=== PATIENT | female | born 1950 | race Caucasian/White ===

== ENCOUNTER → 2016-10-15 | Outpatient (CLI) | payer OTHER ==
--- NOTE | 2016-10-16 08:15 | PULMONARY FUNCTION TEST ---
Spirometry is normal. Repeat study done following bronchodilators showed no significant change in function. Flow volume loops were normal.
== END | disposition home or self-care (01) ==
LOC: C.RC 14:06
PROVIDERS: ATTEND Family Medicine
DX: R06.09 Other forms of dyspnea (principal); I10 Essential (primary) hypertension; Z68.23 Body mass index [BMI] 23.0-23.9, adult; R32 Unspecified urinary incontinence

== ENCOUNTER → 2016-10-19 | Outpatient (CLI) | payer OTHER | END | disposition home or self-care (01) | LOC: C.LABSPEC 17:03 | PROVIDERS: ATTEND Nurse Practitioner Adult Health | DX: R32 Unspecified urinary incontinence (principal) ==

== ENCOUNTER → 2016-12-21 | Outpatient (CLI) | payer OTHER | LOC: C.LABSPEC 17:44 | PROVIDERS: ATTEND Nurse Practitioner Adult Health | DX: R32 Unspecified urinary incontinence (principal) ==

== ENCOUNTER → 2017-07-27 | Outpatient (CLI) | payer OTHER ==
--- NOTE | 2017-07-27 15:20 | MAMMOGRAPHY REPORT ---
BILATERAL DIGITAL SCREENING MAMMOGRAM TOMOSYNTHESIS WITH CAD: 07/27/2017 CLINICAL HISTORY: Routine screening. Patient has no complaints. TECHNIQUE: Breast tomosynthesis in addition to standard 2D mammography was performed. Current study was also evaluated with a Computer Aided Detection (CAD) system. COMPARISON: Comparison is made to exams dated: 08/05/2016 mammogram, 07/20/2016 mammogram, 07/01/2015 mammogram, 07/18/2014 ultrasound, 07/18/2014 mammogram, and 06/27/2013 mammogram - [facility]. BREAST COMPOSITION: There are scattered areas of fibroglandular density in both breasts. FINDINGS: There is a stable ribbon-shaped biopsy marker clip in the upper outer anterior left breast, and a few benign calcifications bilaterally. No suspicious mass, architectural distortion or cluste r of suspicious microcalcifications is seen. IMPRESSION: ACR BI-RADS CATEGORY 1: NEGATIVE There is no mammographic evidence of malignancy. A 1 year screening mammogram is recommended. The pa tient will receive written notification of the results. Approximately 10% of breast cancers are not detected with mammography. A negative mammographic report should not delay biopsy if a clinically suggestive mass is present. Jacqueline Almanza M.D. ay/:07/27/2017 13:44:03 Manager Industrial: Modesta Navas, [facility] letter sent: Normal 1/2 BI-RADS Code: ACR BI-RADS Category 1: Negative
== END | disposition home or self-care (01) ==
LOC: C.MAMM 13:19
PROVIDERS: ATTEND Family Medicine
DX: Z12.31 Encounter for screening mammogram for malignant neoplasm of breast (principal)

== ENCOUNTER → 2018-02-01 | Outpatient (CLI) | payer OTHER | END | disposition home or self-care (01) | LOC: C.MAMM 15:27 | PROVIDERS: ATTEND Family Medicine | DX: M85.89 Other specified disorders of bone density and structure, multiple sites (principal) ==

== ENCOUNTER 2021-01-25 19:22 | Inpatient (IN) ==
--- NOTE | 2021-01-25 19:41 | Emergency Department Note ---
History of Present Illness General Chief complaint: Fall Stated complaint: FALL Time Seen by Provider: 01/25/21 19:28 Source: patient and friends Limitations: intoxication History of Present Illness Provider complaint: Fall Onset (ago): day(s) Location: head Maximum Pain Intensity: 0 Associated symptoms: + syncope (Unsure); no chest pain, no fever/chills, no headaches, no nausea/vomiting and no shortness of breath This is a 70-year-old female brought in by her friend for evaluation after a fall 2 days ago. The patient states that she drank too much alcohol at the time and she fell onto her hardwood floor. She is not exactly sure how she fell and does not really remember the incident to well. There was blood on the floor according to her friend and she had a laceration to the back of her head. She does state that her tetanus is up-to-date. She complains of bruising all over her body but has no specific foci of pain. She denies headache, neck pain, chest pain, shortness of breath, abdominal pain, back pain or hip pain. She states she drank a bit of alcohol today as well. She is not on any blood thinners. She denies any recent illness or fever or cough. Her friend states that the patient has not really eaten or drank anything today. History is limited due to what appears to be alcohol intoxication. Home Medications Medication Instructions Recorded Confirmed Type alendronate 35 mg PO WK 01/25/21 01/25/21 History cholecalciferol (vitamin D3) 2,000 unit PO DAILY 01/25/21 01/25/21 History [Vitamin D3] docusate sodium 100 mg PO DAILY 01/25/21 01/25/21 History folic acid 400 mcg PO DAILY 01/25/21 01/25/21 History hydrochlorothiazide 25 mg PO QAM 01/25/21 01/25/21 History lamotrigine 200 mg PO BID 01/25/21 01/25/21 History lorazepam 1 mg PO HS PRN 01/25/21 01/25/21 History propranolol 40 mg PO BID 01/25/21 01/25/21 History risperidone [Risperdal] 0.5 mg PO HS 01/25/21 01/25/21 History vortioxetine [Trintellix] 20 mg PO DAILY 01/25/21 01/25/21 History zolpidem [Ambien] 5 mg PO 4XWK PRN 01/25/21 01/25/21 History Allergies Allergy/AdvReac Type Severity Reaction Status Date / Time No Known Allergies Allergy Unverified 01/25/21 20:24 Past Med/Surg History Medical History (Updated 01/25/21 @ 21:51 by Ferdinand Woods MD) Hypertension Social History Smoking Status: Never smoker Feels Safe at Home: Yes Review of Systems See HPI for pertinent positives & negatives. and A total of 10 systems reviewed and were otherwise negative Physical Exam Vital Signs Vital Signs - 24 hr 01/25/21 18:29 01/25/21 19:23 01/25/21 20:09 Temperature 36.4 C L Temperature Source Temporal Artery Scan Pulse Rate 112 H 115 H 111 H Pulse Rate from SpO2 Sensor 111 H Pulse Rhythm Regular Respiratory Rate 19 18 18 Blood Pressure 144/108 H 162/91 H Blood Pressure Mean 120 114 Blood Pressure Position Lying Pulse Oximetry 94 94 99 Oxygen Delivery Method Room Air Room Air Sepsis Recent Fever Within 48 Hours No Sepsis New/Unexplained Change in Mental Status No Sepsis Action Taken by Nursing No Action Required Constitutional: Vital signs reviewed. Eyes: Pupils are equal round reactive to light. Conjunctiva are noninjected. ENT: Pharynx is clear without erythema or exudate. Mucous membranes are moist. Neck supple without meningeal signs. No periorbital ecchymosis or agosto sign. Respiratory: Clear to auscultation bilaterally. Breath sounds are equal bilaterally. Cardiovascular: Tachycardic. Regular rhythm. GI: Soft, nondistended and nontender. Bowel sounds are present. Musculoskeletal: Multiple bruises of varying stages throughout the body including the left upper extremity, right upper extremity, left hip, left breast and lower extremities. No hip tenderness with full range of motion of both joints. There is some mild tenderness to the left lateral shoulder without obvious deformity. Distal pulses in all extremities. No rib tenderness. No midline tenderness to thoracic or lumbar spine. Integumentary: No cyanosis. or jaundice. 3 cm scabbed over laceration to the left occiput. No bleeding. No signs of infection. Neurological: The patient is awake and alert. Appears intoxicated. Moves all extremities. No pronator drift. Cranial nerves are grossly intact without facial droop. Patient is not cooperative with exam. Psychiatric: Unable to assess. Course Administered Medications Sodium Chloride (Nss) 500 mls @ 125 mls/hr IV .Q4H NANCY Stop: 02/24/21 19:44 Last Admin: 01/25/21 19:58 Dose: 125 mls/hr Documented by: [id number] Discontinued Medications Ioversol (Optiray 350 500ml) 113 ml IV ONCE ONE Stop: 01/25/21 20:52 Last Admin: 01/25/21 20:52 Dose: 113 ml Documented by: [id number] Medical Decision Making Differential Diagnosis Alcohol intoxication, intracranial hemorrhage, concussion, syncope, anemia, metabolic derangement, electrolyte abnormality Medical Records Attestation: I reviewed the patient's medical records. I did perform a limited focused review of portions of the patient's old chart on the electronic medical record. The patient has had no recent pertinent visits to this hospital. Home Medications Current Medication List: was personally reviewed by me Laboratory Data Attestation: I reviewed the patient's lab results. Result diagrams: 01/25/21 19:54 01/25/21 19:54 Lab Results 01/25/21 01/25/21 01/25/21 Range/Units 19:54 19:54 19:54 WBC 3.89 L (4.8-10.8) K/uL RBC 3.44 L (4.2-5.4) M/uL Hgb 11.7 L (12.0-16.0) g/dL Hct 34.2 L (37-47) % MCV 99.4 (80-100) fL MCH 34.0 (25-34) pg MCHC 34.2 (32-36) g/dL RDW Std Deviation 46.3 (36.4-46.3) fL RDW Coeff of Rosaura 12.7 (11.5-14.5) % Plt Count 147 (130-400) K/uL MPV 9.3 (7.4-10.4) fL Immature Gran % (Auto) 0.3 % Neut % (Auto) 62.1 % Lymph % (Auto) 25.7 % Merrick % (Auto) 11.1 % Eos % (Auto) 0.3 % Baso % (Auto) 0.5 % Neut # (Auto) 2.42 (1.4-6.5) K/uL Lymph # (Auto) 1.00 L (1.2-3.4) K/uL Merrick # (Auto) 0.43 (0.11-0.59) K/uL Eos # (Auto) 0.01 (0-0.5) K/uL Baso # (Auto) 0.02 (0-0.2) K/uL Immature Gran # (Auto) 0.01 (0.00-0.02) K/uL Pappenheimer Bodies Occasional Sodium 132 L (136-145) mmol/L Potassium 3.3 L (3.5-5.1) mmol/L Chloride 92 L (98-107) mmol/L Carbon Dioxide 26 (21-32) mmol/L Anion Gap 14.0 H (3-11) BUN 9 (7-18) mg/dl Creatinine 0.76 (0.6-1.2) mg/dl Est Cr Clr Drug Dosing Not Reportable Est GFR ( Amer) 92.8 Est GFR (Non-Af Amer) 80.0 BUN/Creatinine Ratio 11.9 (10-20) Glucose 83 (70-99) mg/dl Calcium 8.8 (8.5-10.1) mg/dl Magnesium 2.3 (1.8-2.4) mg/dl Total Bilirubin 1.2 H (0.2-1) mg/dl AST 232 H (15-37) U/L ALT 113 H (12-78) U/L Alkaline Phosphatase 93 (45-117) U/L Troponin I 0.084 H* (0-0.045) ng/ml Total Protein 7.6 (6.4-8.2) gm/dl Albumin 4.0 (3.4-5.0) gm/dl Globulin 3.6 (2.5-4.0) gm/dl Albumin/Globulin Ratio 1.1 (0.9-2) Ethyl Alcohol mg/dL 382.3 H (0-3) mg/dl COVID-19 Eval Order 01/25/21 Range/Units 21:07 WBC (4.8-10.8) K/uL RBC (4.2-5.4) M/uL Hgb (12.0-16.0) g/dL Hct (37-47) % MCV (80-100) fL MCH (25-34) pg MCHC (32-36) g/dL RDW Std Deviation (36.4-46.3) fL RDW Coeff of Rosaura (11.5-14.5) % Plt Count (130-400) K/uL MPV (7.4-10.4) fL Immature Gran % (Auto) % Neut % (Auto) % Lymph % (Auto) % Merrick % (Auto) % Eos % (Auto) % Baso % (Auto) % Neut # (Auto) (1.4-6.5) K/uL Lymph # (Auto) (1.2-3.4) K/uL Merrick # (Auto) (0.11-0.59) K/uL Eos # (Auto) (0-0.5) K/uL Baso # (Auto) (0-0.2) K/uL Immature Gran # (Auto) (0.00-0.02) K/uL Pappenheimer Bodies Sodium (136-145) mmol/L Potassium (3.5-5.1) mmol/L Chloride (98-107) mmol/L Carbon Dioxide (21-32) mmol/L Anion Gap (3-11) BUN (7-18) mg/dl Creatinine (0.6-1.2) mg/dl Est Cr Clr Drug Dosing Est GFR ( Amer) Est GFR (Non-Af Amer) BUN/Creatinine Ratio (10-20) Glucose (70-99) mg/dl Calcium (8.5-10.1) mg/dl Magnesium (1.8-2.4) mg/dl Total Bilirubin (0.2-1) mg/dl AST (15-37) U/L ALT (12-78) U/L Alkaline Phosphatase (45-117) U/L Troponin I (0-0.045) ng/ml Total Protein (6.4-8.2) gm/dl Albumin (3.4-5.0) gm/dl Globulin (2.5-4.0) gm/dl Albumin/Globulin Ratio (0.9-2) Ethyl Alcohol mg/dL (0-3) mg/dl COVID-19 Eval Order CovFluRsv at [facility] Imaging Data Attestation: I personally reviewed and interpreted this imaging study as follows: Radiologist's Impression: Chest X-Ray 01/25/21 19:35 XR chest 1V portable HISTORY: 70 years-old Female fall acute chest trauma status post fall COMPARISON: None TECHNIQUE: Semierect AP view the chest FINDINGS: Cardiac mediastinal and hilar silhouettes are within normal limits. No pneumothorax, pleural effusion, airspace consolidation or overt pulmonary edema. Bones of the chest appear grossly intact. IMPRESSION: No acute process. ACT 112: Negative or not required by law. The above report was generated using voice recognition software. It may contain grammatical, syntax or spelling errors. Electronically signed by: Ciaran Gomez M.D. 01/25/2021 7:58 PM Shoulder X-Ray 01/25/21 19:35 XR shoulder LT min 2V routine HISTORY: 70 years-old Female fall eval for injury acute left shoulder pain status post fall COMPARISON: Chest radiograph of same day TECHNIQUE: The left shoulder FINDINGS: Mild glenohumeral and AC joint osteoarthritis. No acute fracture, dislocation or opaque foreign body. IMPRESSION: No acute fracture. ACT 112: Negative or not required by law. The above report was generated using voice recognition software. It may contain grammatical, syntax or spelling errors. Electronically signed by: Ciaran Gomez M.D. 01/25/2021 7:55 PM Hip/Pelvis X-Ray 01/25/21 19:41 XR hip LT 2V w pelvis HISTORY: 70 years-old Female fall eval for injury acute pelvic and left hip rodolfo n status post fall COMPARISON: None TECHNIQUE: AP view of the pelvis with 2 views of the left hip FINDINGS: Mild osteophyte is of the hips. No acute fracture, dislocation or avascular necrosis. Soft tissue swelling lateral to left hip. IMPRESSION: 1. No acute fracture. 2. Soft tissue swelling lateral to the left hip. ACT 112: Negative or not required by law. The above report was generated using voice recognition software. It may contain grammatical, syntax or spelling errors. Electronically signed by: Ciaran Gomez M.D. 01/25/2021 7:56 PM Preliminary Findings Only See Final Report For Complete Findings CTA CHEST: No traumatic injury within the chest. Lungs are clear. No pleural effusion or pneumothorax. Unremarkable appearance of the heart and great vessels. Marked hepatic steatosis. Radiologist: Bari Cannon MD Study ready at 21:00 and initial results transmitted at 21:12 Preliminary Findings Only See Final Report For Complete Findings CT C SPINE: No evidence of fracture or malalignment. Radiologist: Bari Cannon MD Study ready at 20:56 and initial results transmitted at 21:07 Preliminary Findings Only See Final Report For Complete Findings CT HEAD: No ICH, mass effect or edema. No skull fracture. Radiologist: Bari Cannon MD Study ready at 20:56 and initial results transmitted at 21:04 ECG Data Attestation: I personally reviewed and interpreted this ECG as follows: Indication: + tachycardia Rate (beats per minute): 104 Rhythm: + sinus tachycardia ECG [place]: + Normal ECG ST segments: + Nonspecific ST abnormalities ECG Findings: no PVCs Head Trauma GCS Score: 15 MDM Narrative I did evaluate the patient as noted above. The patient is presenting with injuries after fall 2 days ago. She does have bruising throughout her body of varying stages. She appears intoxicated today. IV access was established. I did place an order for continuous cardiac monitoring. The monitor showed sinus tachycardia at a rate of 110 bpm. I did order and personally review the patient's 12-lead EKG as described above. She has nonspecific ST-T wave changes.She denies any complaints of chest pain or shortness of breath. I did order and personally reviewed the images of the patient's chest, left shoulder, left hip and pelvis x-rays as described above. There is no acute process within the chest. There is no evidence of fracture or dislocation in the shoulder, hip or pelvis. I did order a urine analysis. I did order and review the patient's blood work as noted in the electronic medical record. Electrolytes demonstrate hypokalemia and hyponatremia with hypokalemia and a chloride of 92. AST and ALT are elevated at 232 and 113 respectively. Troponin is elevated at 0.084. Serum alcohol is 382. I did order a CT of the head and cervical spine and CT angiogram of the chest. I did review the images myself as well as the radiology report as described above. There is no evidence of acute finding on CT angiogram of the chest or CT of the head spine. I did discuss the test results with the patient and her friend. She will be hospitalized for further care and evaluation her repeat of cardiac biomarkers. The case was discussed with the disability case manager and the hospitalist was informed. Covid screening was obtained. Impression & Plan Syncope, Elevated troponin, Alcohol intoxication, Acute head injury, Laceration of scalp, Contusion of multiple sites, Acute hyponatremia, Acute hypokalemia Discharge Plan Visit Data Chief Complaint: Fall Stated Complaint: FALL ED Provider: Ferdinand Woods Discharge Problem: Syncope, Elevated troponin, Alcohol intoxication, Acute head injury, Laceration of scalp, Contusion of multiple sites, Acute hyponatremia, Acute hypokalemia Patient Disposition: Being Evaluated by Hospitalist Forms Stand Alone Forms: My [facility] Prescriptions Prescriptions: No Action lamotrigine 200 mg tablet 200 mg PO BID RF: 0 folic acid 400 mcg Tablet 400 mcg PO DAILY RF: 0 alendronate 35 mg tablet 35 mg PO WK RF: 0 propranolol 40 mg tablet 40 mg PO BID RF: 0 docusate sodium 100 mg Capsule 100 mg PO DAILY RF: 0 hydrochlorothiazide 25 mg tablet 25 mg PO QAM RF: 0 zolpidem [Ambien] 5 mg Tablet 5 mg PO 4XWK PRN (Reason: Sleep) RF: 0 lorazepam 1 mg tablet 1 mg PO HS PRN (Reason: Sleep) RF: 0 risperidone [Risperdal] 0.5 mg Tablet 0.5 mg PO HS RF: 0 cholecalciferol (vitamin D3) [Vitamin D3] 50 mcg (2,000 unit) Tablet 2,000 unit PO DAILY RF: 0 Trintellix 20 mg tablet 20 mg PO DAILY RF: 0 Referrals Referrals: Annmarie Greene DO [Primary Care Provider] - Discharge Problem: Syncope Qualifiers: Syncope type: unspecified Qualified Code(s): R55 - Syncope and collapse Alcohol intoxication Qualifiers: Complication of substance-induced condition: with unspecified complication Qualified Code(s): F10.929 - Alcohol use, unspecified with intoxication, unspecified Acute head injury Qualifiers: Encounter type: initial encounter Qualified Code(s): S09.90XA - Unspecified injury of head, initial encounter Laceration of scalp Qualifiers: Encounter type: initial encounter Qualified Code(s): S01.01XA - Laceration without foreign body of scalp, initial encounter
--- NOTE | 2021-01-25 19:57 | XRay Report ---
XR shoulder LT min 2V routine HISTORY: 70 years-old Female fall eval for injury acute left shoulder pain status post fall COMPARISON: Chest radiograph of same day TECHNIQUE: The left shoulder FINDINGS: Mild glenohumeral and AC joint osteoarthritis. No acute fracture, dislocation or opaque foreign body. IMPRESSION: No acute fracture. ACT 112: Negative or not required by law. The above report was generated using voice recognition software. It may contain grammatical, syntax o r spelling errors. Electronically signed by: Ciaran Gomez M.D. 01/25/2021 7:55 PM
[2021-01-25] MEDS: SODIUM CHLORIDE 0.9% 500 ML IV SCH (19:58)
--- NOTE | 2021-01-25 19:58 | XRay Report ---
XR hip LT 2V w pelvis HISTORY: 70 years-old Female fall eval for injury acute pelvic and left hip pain status post fall COMPARISON: None TECHNIQUE: AP view of the pelvis with 2 views of the left hip FINDINGS: Mild osteophyte is of the hips. No acute fracture, dislocation or avascular necrosis. Soft tissue swe lling lateral to left hip. IMPRESSION: 1. No acute fracture. 2. Soft tissue swelling lateral to the left hip. ACT 112: Negative or not required by law. The above report was generated using voice recognition software. It may contain grammatical, syntax o r spelling errors. Electronically signed by: Ciaran Gomez M.D. 01/25/2021 7:56 PM
--- NOTE | 2021-01-25 19:59 | XRay Report ---
XR chest 1V portable HISTORY: 70 years-old Female fall acute chest trauma status post fall COMPARISON: None TECHNIQUE: Semierect AP view the chest FINDINGS: Cardiac mediastinal and hilar silhouettes are within normal limits. No pneumothorax, pleural effusion , airspace consolidation or overt pulmonary edema. Bones of the chest appear grossly intact. IMPRESSION: No acute process. ACT 112: Negative or not required by law. The above report was generated using voice recognition software. It may contain grammatical, syntax o r spelling errors. Electronically signed by: Ciaran Gomez M.D. 01/25/2021 7:58 PM
[2021-01-25 20:06] LABS: Mean Corpuscular Hgb Conc 34.2 g/dL (32-36); Mean Platelet Volume 9.3 fL (7.4-10.4); Platelet Count 147 K/uL (130-400)
[2021-01-25 20:26] LABS: Alanine Aminotransferase 113 U/L (12-78); Aspartate Aminotransferase 232 U/L (15-37); BUN Creatinine Ratio 11.9 (10-20); Blood Urea Nitrogen 9 mg/dl (7-18); Calcium 8.8 mg/dl (8.5-10.1); Carbon Dioxide 26 mmol/L (21-32); Chloride 92 mmol/L (98-107); Est GFR (African American) 92.8; Glucose 83 mg/dl (70-99); Magnesium 2.3 mg/dl (1.8-2.4); Potassium 3.3 mmol/L (3.5-5.1); Sodium 132 mmol/L (136-145)
[2021-01-25 20:36] LABS: Albumin Globulin Ratio 1.1 (0.9-2); Alkaline Phosphatase 93 U/L (45-117); Bilirubin,Total 1.2 mg/dl (0.2-1); Globulin 3.6 gm/dl (2.5-4.0); Total Protein 7.6 gm/dl (6.4-8.2); Troponin I 0.084 ng/ml (0-0.045)
[2021-01-25] MEDS ORDERED: OPTIRAY 350 500ml IV ONE (20:51)
[2021-01-25 20:55] LABS: Basophils # (auto) 0.02 K/uL (0-0.2); Basophils % (auto) 0.5 %; Eosinophils # (auto) 0.01 K/uL (0-0.5); Eosinophils % (auto) 0.3 %; Hematocrit (blood only) 34.2 % (37-47); Hemoglobin 11.7 g/dL (12.0-16.0); Immature Granulocytes # (auto) 0.01 K/uL (0.00-0.02); Immature Granulocytes % (auto) 0.3 %; Lymphocytes % (auto) 25.7 %; Mean Corpuscular Volume 99.4 fL (80-100); Monocytes # (auto) 0.43 K/uL (0.11-0.59); Monocytes % (auto) 11.1 %; Neutrophils # (auto) 2.42 K/uL (1.4-6.5); Neutrophils % (auto) 62.1 %; Pappenheimer Bodies Occasional; RDW Coefficient of Variation 12.7 % (11.5-14.5); RDW Standard Deviation 46.3 fL (36.4-46.3); Red Blood Count 3.44 M/uL (4.2-5.4); White Blood Count 3.89 K/uL (4.8-10.8)
[2021-01-25 22:23] LABS: Influenza A virus by PCR Negative (Neg); Influenza B virus by PCR Negative (Neg); RSV by PCR Negative (Neg); SARS CoV2 RNA(COVID-19) InHosp NEGATIVE (Negative)
--- NOTE | 2021-01-25 23:21 | History & Physical Report ---
Date of Service January 25, 2021 Assessment & Plan (1) Syncope: Syncope- Noted to be 2 days prior to arrival Unknown frequency of falls prior to this Likely secondary to alcohol abuse Present on Admission?: Yes (2) Alcohol withdrawal: Alcohol withdrawal/alcohol intoxication/alcohol abuse over several years- Alcohol level 302.3 upon admission AWSS protocol with IV Ativan Monitored bed Present on Admission?: Yes (3) Alcohol intoxication: See above Present on Admission?: Yes (4) Elevated troponin: Troponin 0.084 upon admission The patient will be admitted to telemetry for serial cardiac enzymes, serial EKG's, cardiac rhythm monitoring and a 2-D echocardiogram with Dopplers. Likely type II VT, supply demand mismatch Present on Admission?: Yes (5) Abnormal liver function tests: Total bilirubin 1.2, AST 232, ALT 113. Alcoholic hepatitis versus alcoholic liver disease versus others. Ultrasound of abdomen on 08/19/2020 suggested hepatic steatosis and a probable gallbladder polyp Present on Admission?: Yes (6) Hypertension: Hypertension/hyponatremia/hypokalemia- Hold HCTZ, as likely cause. Continue propranolol 40 mg p.o. twice daily NSS + KCl 20 mEq at 100 mils per hour Repeat laboratories in a.m. Present on Admission?: Yes (7) Acute hyponatremia: See above Present on Admission?: Yes (8) Acute hypokalemia: See above Present on Admission?: Yes (9) Manic depressive disorder: Continue lamotrigine, Risperdal, Trintellix. Likely self-medicating with alcohol use as well. She reports she has a counselor in the outpatient setting, and does not want to see psychiatry this admission Present on Admission?: Yes History of Present Illness Chief Complaint: The patient was brought to the emergency department by a friend, who found out that she had fallen 2 days previously, and had had some falls prior to that. Primary Care Provider: Annmarie Greene DO The patient is a 70-year-old female with a past medical history including osteoporosis, constipation, hypertension, manic depressive disorder, and insomnia. She was found by a close friend to have had a fall 2 days previously, and was brought to the ED for further assessment. Work-up in the emergency department included the following imaging: CT cervical spine negative, CT head negative, chest x-ray negative, x-ray left shoulder negative, x-ray left hip negative. Laboratory assessment: Potassium 3.3, sodium 132, total bilirubin 1.2, AST 232, ALT 113, troponin 0.084, and alcohol level 382.3. EKG showed sinus tach at 104, with no acute ST-T changes. Patient reports that she did have alcohol intake 2 days previously, prior to her falling, and reports that she had a little bit to drink today as well. Allergies Allergy/AdvReac Type Severity Reaction Status Date / Time No Known Allergies Allergy Unverified 01/25/21 20:24 Home Medications Medication Instructions Recorded Confirmed Type alendronate 35 mg PO WK 01/25/21 01/25/21 History cholecalciferol (vitamin D3) 2,000 unit PO DAILY 01/25/21 01/25/21 History [Vitamin D3] docusate sodium 100 mg PO DAILY 01/25/21 01/25/21 History folic acid 400 mcg PO DAILY 01/25/21 01/25/21 History hydrochlorothiazide 25 mg PO QAM 01/25/21 01/25/21 History lamotrigine 200 mg PO BID 01/25/21 01/25/21 History lorazepam 1 mg PO HS PRN 01/25/21 01/25/21 History propranolol 40 mg PO BID 01/25/21 01/25/21 History risperidone [Risperdal] 0.5 mg PO HS 01/25/21 01/25/21 History vortioxetine [Trintellix] 20 mg PO DAILY 01/25/21 01/25/21 History zolpidem [Ambien] 5 mg PO 4XWK PRN 01/25/21 01/25/21 History Past Med/Surg History Medical History (Updated 01/26/21 @ 04:09 by Chirag Young MD) Hypertension Social History Smoking Status: Never smoker Hx Alcohol Use: Yes Alcohol type: hard liquor Hx Substance Use: No Preferred Language: Pashto Communication Ability: Effective Radio Director Required: No Beliefs That Will Affect Care: None Current Living Situation: Alone Other Information That Helps Us Care for You: No Feels Safe at Home: Yes Safety Concerns: Feels Safe At This Time Assistive Devices: Glasses Review of Systems Review of Systems: The patient denies chest pain, palpitations, shortness of breath, dyspnea on exertion, cough, lower extremity swelling, sore throat, fevers, chills, sweats, weight change, fatigue, nausea, vomiting, diarrhea , constipation, abdominal pain, pelvic pain, blood in urine or stool, dysuria, urinary frequency or urgency, rash, focal weakness, numbness or tingling in arms or legs, generalized arthralgias or myalgias, back or neck pain, or night sweats. The review of systems is otherwise negative other than for that already noted above, and at least 10 systems have been reviewed. Physical Exam Physical Exam: The patient is awake, alert and oriented 3, well developed and well nourished, normocephalic and atraumatic, lying in bed and in no acute distress. HEENT--PERRL, EOMI, mucous membranes and oropharynx dry. Neck--supple. No JVD. No bruits. Thyroid normal, trachea midline, no adenopathy. Heart--normal S1 and S2. No murmurs, rubs or gallops. Lungs--clear bilaterally, no respiratory distress, no accessory muscle use. Abdomen--normal bowel sounds and soft. Nontender. Nondistended, no hernias or masses, no organomegaly. Extremities--no cyanosis or clubbing. No edema. Dermatologic--normal skin turgor, normal color, no abnormal lymph nodes, no rash. Neurologic--cranial nerves II through XII grossly intact. Rheumatologic--normal range of motion. Psychiatric--normal affect. Results & Data Results & Data ([facility]) Vital Signs (Past 12 Hours) Vital Signs Temp Pulse Resp BP Pulse Ox 01/25/21 23:00 120 H 26 H 150/72 H 90 01/25/21 22:45 113 H 21 133/67 94 01/25/21 22:30 117 H 17 142/77 H 92 01/25/21 22:16 116 H 22 127/70 86 L 01/25/21 22:15 111 H 25 H 87 L 01/25/21 22:00 115 H 25 H 118/71 87 L 01/25/21 21:45 116 H 20 125/74 87 L 01/25/21 21:30 113 H 20 116/75 94 01/25/21 21:15 111 H 24 138/74 93 01/25/21 21:06 112 H 23 124/82 94 01/25/21 21:03 120 H 13 01/25/21 20:30 111 H 15 136/79 93 01/25/21 20:16 110 H 22 138/84 94 01/25/21 20:09 111 H 18 99 01/25/21 19:23 97.5 F L 115 H 18 162/91 H 94 01/25/21 18:29 112 H 19 144/108 H 94 Laboratory Results Laboratory Results WBC 3.89 K/uL (4.8-10.8) L 01/25/21 19:54 RBC 3.44 M/uL (4.2-5.4) L 01/25/21 19:54 Hgb 11.7 g/dL (12.0-16.0) L 01/25/21 19:54 Hct 34.2 % (37-47) L 01/25/21 19:54 MCV 99.4 fL (80-100) 01/25/21 19:54 MCH 34.0 pg (25-34) 01/25/21 19:54 MCHC 34.2 g/dL (32-36) 01/25/21 19:54 RDW Std Deviation 46.3 fL (36.4-46.3) 01/25/21 19:54 RDW Coeff of Rosaura 12.7 % (11.5-14.5) 01/25/21 19:54 Plt Count 147 K/uL (130-400) 01/25/21 19:54 MPV 9.3 fL (7.4-10.4) 01/25/21 19:54 Immature Gran % (Auto) 0.3 % 01/25/21 19:54 Neut % (Auto) 62.1 % 01/25/21 19:54 Lymph % (Auto) 25.7 % 01/25/21 19:54 Curry % (Auto) 11.1 % 01/25/21 19:54 Eos % (Auto) 0.3 % 01/25/21 19:54 Baso % (Auto) 0.5 % 01/25/21 19:54 Neut # (Auto) 2.42 K/uL (1.4-6.5) 01/25/21 19:54 Lymph # (Auto) 1.00 K/uL (1.2-3.4) L 01/25/21 19:54 Curry # (Auto) 0.43 K/uL (0.11-0.59) 01/25/21 19:54 Eos # (Auto) 0.01 K/uL (0-0.5) 01/25/21 19:54 Baso # (Auto) 0.02 K/uL (0-0.2) 01/25/21 19:54 Immature Gran # (Auto) 0.01 K/uL (0.00-0.02) 01/25/21 19:54 Pappenheimer Bodies Occasional 01/25/21 19:54 Sodium 132 mmol/L (136-145) L 01/25/21 19:54 Potassium 3.3 mmol/L (3.5-5.1) L 01/25/21 19:54 Chloride 92 mmol/L (98-107) L 01/25/21 19:54 Carbon Dioxide 26 mmol/L (21-32) 01/25/21 19:54 Anion Gap 14.0 (3-11) H 01/25/21 19:54 BUN 9 mg/dl (7-18) 01/25/21 19:54 Creatinine 0.76 mg/dl (0.6-1.2) 01/25/21 19:54 Est Cr Clr Drug Dosing Not Reportable 01/25/21 19:54 Est GFR ( Amer) 92.8 01/25/21 19:54 Est GFR (Non-Af Amer) 80.0 01/25/21 19:54 BUN/Creatinine Ratio 11.9 (10-20) 01/25/21 19:54 Glucose 83 mg/dl (70-99) 01/25/21 19:54 Calcium 8.8 mg/dl (8.5-10.1) 01/25/21 19:54 Magnesium 2.3 mg/dl (1.8-2.4) 01/25/21 19:54 Total Bilirubin 1.2 mg/dl (0.2-1) H 01/25/21 19:54 AST 232 U/L (15-37) H 01/25/21 19:54 ALT 113 U/L (12-78) H 01/25/21 19:54 Alkaline Phosphatase 93 U/L (45-117) 01/25/21 19:54 Troponin I 0.084 ng/ml (0-0.045) H* 01/25/21 19:54 Total Protein 7.6 gm/dl (6.4-8.2) 01/25/21 19:54 Albumin 4.0 gm/dl (3.4-5.0) 01/25/21 19:54 Globulin 3.6 gm/dl (2.5-4.0) 01/25/21 19:54 Albumin/Globulin Ratio 1.1 (0.9-2) 01/25/21 19:54 Ethyl Alcohol mg/dL 382.3 mg/dl (0-3) H 01/25/21 19:54 COVID-19 Eval Order [facility]FluRsv at [facility] 01/25/21 21:07 SARS-CoV-2 (PCR) NEGATIVE (Negative) 01/25/21 21:07 Influenza Type A (PCR) Negative (Neg) 01/25/21 21:07 Influenza Type B (PCR) Negative (Neg) 01/25/21 21:07 RSV (RT-PCR) Negative (Neg) 01/25/21 21:07 Impressions Chest X-Ray 01/25/21 19:35 XR chest 1V portable HISTORY: 70 years-old Female fall acute chest trauma status post fall COMPARISON: None TECHNIQUE: Semierect AP view the chest FINDINGS: Cardiac mediastinal and hilar silhouettes are within normal limits. No pneumothorax, pleural effusion, airspace consolidation or overt pulmonary edema. Bones of the chest appear grossly intact. IMPRESSION: No acute process. ACT 112: Negative or not required by law. The above report was generated using voice recognition software. It may contain grammatical, syntax or spelling errors. Electronically signed by: Ciaran Gomez M.D. 01/25/2021 7:58 PM Shoulder X-Ray 01/25/21 19:35 XR shoulder LT min 2V routine HISTORY: 70 years-old Female fall eval for injury acute left shoulder pain status post fall COMPARISON: Chest radiograph of same day TECHNIQUE: The left shoulder FINDINGS: Mild glenohumeral and AC joint osteoarthritis. No acute fracture, dislocation or opaque foreign body. IMPRESSION: No acute fracture. ACT 112: Negative or not required by law. The above report was generated using voice recognition software. It may contain grammatical, syntax or spelling errors. Electronically signed by: Ciaran Gomez M.D. 01/25/2021 7:55 PM Hip/Pelvis X-Ray 01/25/21 19:41 XR hip LT 2V w pelvis HISTORY: 70 years-old Female fall eval for injury acute pelvic and left hip pain status post fall COMPARISON: None TECHNIQUE: AP view of the pelvis with 2 views of the left hip FINDINGS: Mild osteophyte is of the hips. No acute fracture, dislocation or avascular necrosis. Soft tissue swelling lateral to left hip. IMPRESSION: 1. No acute fracture. 2. Soft tissue swelling lateral to the left hip. ACT 112: Negative or not required by law. The above report was generated using voice recognition software. It may contain grammatical, syntax or spelling errors. Electronically signed by: Ciaran Gomez M.D. 01/25/2021 7:56 PM [facility] Patient: RADHA GOSS (Female) : 52 Status: ER Date: 01/25/21 20:55 Room #: History: FALL, SYNCOPE, ELEVATE D DIMER OPTIRAY 350 113ML EK/AW Slices: 67 Priors: Tech: Alvin Dhillon @ [phone] Exams: CT HEAD Contrast: Accession Numbers: [id number] Preliminary Findings Only See Final Report For Complete Findings CT HEAD: No ICH, mass effect or edema. No skull fracture. Radiologist: Bari Cannon MD Study ready at 20:56 and initial results transmitted at 21:04 *This report constitutes a preliminary interpretation only. Non-acute findings felt to be unrelated to the clinical presentation may not be discussed in this report. The study will be interpreted and a final report will be generated by the local Radiologist the following shift. To reach the hospital radiology department call [phone]. If a discrepancy is found between the preliminary and final interpretations of this study, please notify us via our Client Portal at [email or web address].You can also fax this report with a description of the discrepancy, or include the final report, to our daytime fax number [phone].If faxing, please indicate the severity of discrepancy using one of the following categories: [ ] 1 - Agree/Informational [ ] 2 - Unlikely to Affect Management [ ] 3 - Possible Eventual Change of Management [ ] 4 - Probable Immediate Change of Management For all other patient related information, please fax us at [phone]. [id number] [facility] Patient: RADHA GOSS (Female) : 52 Status: ER Date: 01/25/21 20:55 Room #: History: FALL, SYNCOPE, ELEVATE D DIMER OPTIRAY 350 113ML EK/AW Slices: 725 Priors: Tech: Alvin Dhillon @ [phone] Exams: CT C SPINE Contrast: Accession Numbers: [id number] Preliminary Findings Only See Final Report For Complete Findings CT C SPINE: No evidence of fracture or malalignment. Radiologist: Bari Cannon MD Study ready at 20:56 and initial results transmitted at 21:07 *This report constitutes a preliminary interpretation only. Non-acute findings felt to be unrelated to the clinical presentation may not be discussed in this report. The study will be interpreted and a final report will be generated by the local Radiologist the following shift. To reach the hospital radiology department call [phone]. If a discrepancy is found between the preliminary and final interpretations of this study, please notify us via our Client Portal at [email or web address] can also fax this report with a description of the discrepancy, or include the final report, to our daytime fax number [phone].If faxing, please indicate the severity of discrepancy using one of the following categories: [ ] 1 - Agree/Informational [ ] 2 - Unlikely to Affect Management [ ] 3 - Possible Eventual Change of Management [ ] 4 - Probable Immediate Change of Management For all other patient related information, please fax us at [phone]. [id number] [facility] Patient: RADHA GOSS (Female) : 52 Status: ER Date: 01/25/21 20:58 Room #: History: FALL, SYNCOPE, ELEVATE D DIMER OPTIRAY 350 113ML EK/AW Slices: 835 Priors: Tech: Alvin Dhillon @ [phone] Exams: CTA CHEST Contrast: IV Amt: 113ML Accession Numbers: [id number] Preliminary Findings Only See Final Report For Complete Findings CTA CHEST: No traumatic injury within the chest. Lungs are clear. No pleural effusion or pneumothorax. Unremarkable appearance of the heart and great vessels. Marked hepatic steatosis. Radiologist: Bari Cannon MD Study ready at 21:00 and initial results transmitted at 21:12 *This report constitutes a preliminary interpretation only. Non-acute findings felt to be unrelated to the clinical presentation may not be discussed in this report. The study will be interpreted and a final report will be generated by the local Radiologist the following shift. To reach the [facility] radiology depar tment call [phone]. If a discrepancy is found between the preliminary and final interpretations of this study, please notify us via our Client Portal at [email or web address].You can also fax this report with a description of the discrepancy, or include the final report, to our daytime fax number [phone].If faxing, please indicate the severity of discrepancy using one of the following categories: [ ] 1 - Agree/Informational [ ] 2 - Unlikely to Affect Management [ ] 3 - Possible Eventual Change of Management [ ] 4 - Probable Immediate Change of Management For all other patient related information, please fax us at [phone]. [id number] Code Status & VTE Plan Code Status Full code VTE Prophylaxis Plan VTE Prophylaxis will be ordered: Yes PG Care Time/CCT Total # of Minutes Spent Total Time Spent with Patient: Total time spent is greater than 50% in coordination of care (as documented) at patient's floor/unit and/or counseling patient: Coding Level of Care Code 48689 Initial Inpt Care Lvl 3 Diagnoses Syncope R55 Syncope type: unspecified Alcohol withdrawal F10.239 Alcohol intoxication F10.929 Complication of substance-induced condition: with unspecified complication Elevated troponin R77.8 Abnormal liver function tests R94.5 Hypertension I10 Acute hyponatremia E87.1 Acute hypokalemia E87.6 Manic depressive disorder F31.9 (1) Syncope Syncope type: unspecified Qualified Code(s): R55 - Syncope and collapse (2) Alcohol intoxication Complication of substance-induced condition: with unspecified complication Qualified Code(s): F10.929 - Alcohol use, unspecified with intoxication, unspecified
[2021-01-26] MEDS ORDERED: ATIVAN IV ALCOHOL WITHDRAWL IV PRN (00:58)
[2021-01-26] MEDS ORDERED: ONDANSETRON INJ 2 MG/ML 2 ML VIAL IV PRN (00:58)
[2021-01-26] MEDS ORDERED: LORazepam 2 MG/4 ML VIAL IV PRN (00:58)
[2021-01-26] MEDS ORDERED: LORazepam 3 MG/6 ML VIAL IV PRN (00:58)
[2021-01-26] MEDS ORDERED: LORazepam 1 MG/2 ML VIAL IV PRN (00:58)
[2021-01-26] MEDS: SODIUM CHLORIDE 0.9% 500 ML IV SCH (01:42)
[2021-01-26] MEDS: PROPRANOLOL HCL 20 MG TAB PO SCH ×3 (02:02→19:50)
[2021-01-26] MEDS: NSS + 20MEQ KCL 20 MEQ/1,000 ML BAG IV SCH ×3 (02:02→19:49)
[2021-01-26] MEDS: lamoTRIgine 100 MG TAB PO SCH ×3 (02:02→19:49)
[2021-01-26] MEDS: THIAMINE HCL 100 MG TAB PO SCH ×2 (02:03→08:19)
[2021-01-26] MEDS: FOLIC ACID 1 MG TAB PO SCH ×2 (02:03→08:18)
[2021-01-26 05:50] LABS: Basophils # (auto) 0.01 K/uL (0-0.2); Basophils % (auto) 0.2 %; Eosinophils # (auto) 0.03 K/uL (0-0.5); Eosinophils % (auto) 0.7 %; Hematocrit (blood only) 28.7 % (37-47); Hemoglobin 9.7 g/dL (12.0-16.0); Lymphocytes # (auto) 1.53 K/uL (1.2-3.4); Lymphocytes % (auto) 37.1 %; Mean Corpuscular Hemoglobin 33.8 pg (25-34); Mean Corpuscular Hgb Conc 33.8 g/dL (32-36); Mean Platelet Volume 9.5 fL (7.4-10.4); Monocytes # (auto) 0.48 K/uL (0.11-0.59); Monocytes % (auto) 11.7 %; Neutrophils # (auto) 2.07 K/uL (1.4-6.5); Neutrophils % (auto) 50.3 %; Platelet Count 126 K/uL (130-400); RDW Coefficient of Variation 12.7 % (11.5-14.5); RDW Standard Deviation 46.7 fL (36.4-46.3); Red Blood Count 2.87 M/uL (4.2-5.4); White Blood Count 4.12 K/uL (4.8-10.8)
[2021-01-26 06:08] LABS: Albumin Level 3.1 gm/dl (3.4-5.0); BUN Creatinine Ratio 13.1 (10-20); Creatinine Clr Calc Pharmacy 70.6 ml/min; Est GFR (Non-African American) 90.6; Potassium 3.5 mmol/L (3.5-5.1)
[2021-01-26 06:16] LABS: Albumin Globulin Ratio 1.1 (0.9-2); Globulin 2.7 gm/dl (2.5-4.0); Total Protein 5.9 gm/dl (6.4-8.2); Troponin I 0.129 ng/ml (0-0.045)
--- NOTE | 2021-01-26 07:32 | CT Scan Report ---
CT head/brain wo con CLINICAL HISTORY: 70 years-old Female with fall eval for injury. Acute head injury status post fall with syncope TECHNIQUE: Multiple axial CT images of the head were obtained without contrast. A dose lowering tech nique was utilized adhering to the principles of ALARA. COMPARISON: CT cervical spine of same day FINDINGS: No acute intracranial hemorrhage, midline shift, intracranial mass, hydrocephalus, territorial ischem ia or abnormal extra-axial collection. Age-related involutional changes. Cerebral vascular calcificat ions. The calvarium is intact. The paranasal sinuses, mastoid air cells, and middle ear cavities are clear . IMPRESSION: No acute intracranial abnormality. ACT 112: Negative or not required by law. The above report was generated using voice recognition software. It may contain grammatical, syntax o r spelling errors. Electronically signed by: Ciaran Gomez M.D. 01/26/2021 7:30 AM
--- NOTE | 2021-01-26 07:41 | CT Scan Report ---
CT cervical spine wo con CT DOSE: 1257.44 mGy.cm CLINICAL HISTORY: 70 years-old Female with fall eval for injury. Acute head and neck injury status p ost fall COMPARISON: Head CT of same day TECHNIQUE: Multiple axial CT images of the cervical spine were obtained without contrast. A dose low ering technique was utilized adhering to the principles of ALARA. FINDINGS: Mildly demineralized appearance of the bones. Moderate intervertebral disc space narrowing with spond ylitic spurring and posterior disc osteophyte complex formations at C4-C5 C5-C6. Mild to moderate mul tilevel intervertebral disc space narrowing and facet arthrosis. Multilevel neural foraminal narrowin g. No acute fracture or subluxation. Lung apices are clear. No prevertebral edema. IMPRESSION: No acute fracture or subluxation. ACT 112: Negative or not required by law. The above report was generated using voice recognition software. It may contain grammatical, syntax o r spelling errors. Electronically signed by: Ciaran Gomez M.D. 01/26/2021 7:39 AM
--- NOTE | 2021-01-26 07:59 | CT Scan Report ---
CT angio chest PE protocol HISTORY: 70 years-old Female with syncope eval for PE. Acute fall with syncope TECHNIQUE: Multiple CTA images of the chest were obtained after the intravenous administration of 113 ml Optiray. Coronal and sagittal MIPS were obtained from the axial data set and were submitted for review. All measurements were obtained according to NASCET criteria. A dose lowering technique was u tilized adhering to the principles of ALARA. COMPARISON: Chest radiograph of same day FINDINGS: CTA: The heart is normal in size. No pericardial effusion. No thoracic aortic aneurysm or dissection. Ther e is patency of the imaged great vessels. The pulmonary artery is opacified to the level of the proxi mal subsegmental branches and demonstrates no filling defects. CT CHEST: Unremarkable thyroid. There is no adenopathy. No pneumothorax, pleural effusion, airspace consolidati on or overt pulmonary edema. No suspicious pulmonary nodules. The central airways are patent. No pneumoperitoneum. Severe hepatic steatosis. Mild wall thickening of the distal esophagus. Unremark able soft tissues. No acute fracture. IMPRESSION: 1. Unremarkable CTA of the chest. No pulmonary emboli. 2. Hepatic steatosis. ACT 112: Negative or not required by law. The above report was generated using voice recognition software. It may contain grammatical, syntax o r spelling errors. Electronically signed by: Ciaran Gomez M.D. 01/26/2021 7:58 AM
[2021-01-26] MEDS: DOCUSATE SODIUM 100 MG CAP PO SCH (08:17)
[2021-01-26] MEDS: TRINTELLIX~ORDER AWAITING ACTION SCH ×3 (08:17→22:49)
[2021-01-26] MEDS: ENOXAPARIN INJ 40 MG/0.4 ML SYR SQ SCH (08:18)
[2021-01-26] MEDS: CHOLECALCIFEROL 1,000 UNITS 25 MCG TAB PO SCH (08:19)
[2021-01-26] MEDS ORDERED: FOLIC ACID 400 MCG TAB PO SCH (09:00)
--- NOTE | 2021-01-26 10:30 | Cardiology Consultation ---
Date of Consultation January 26, 2021 Assessment & Plan (1) Syncope: I think the most likely explanation for her syncope was alcohol intoxication. Even at the time she presented to the hospital her alcohol level was exceedingly high. She admits to drinking heavily that day. She appears to have preserved LV systolic function which puts her at low risk for significant ventricular arrhythmias. She had some minor electrolyte abnormalities at the time of admission that were unlikely to be involved in any arrhythmia. She does not describe symptoms at other times consistent with heart disease, coronary insufficiency or heart failure. (2) Elevated troponin: Very mildly elevated cardiac biomarkers. I do not believe she had an acute coronary syndrome. She likely was passed out from acute alcohol intoxication and we are probably seeing some form of mild myocardial injury as a result. If she is interested in up staining from alcohol use, an objective evaluation of her coronary such as stress testing could be performed in the outpatient setting. I do not think she requires an evaluation urgently. I do not think she requires any alteration in her medical therapy currently. I do not think she benefits from taking a daily aspirin at this point. We would always recommend standard cardiac risk factor modification according to published guidelines which would include a low-sodium diet, regular aerobic exercise, monitoring blood pressure and lipids. Clearly the most concerning issue regarding her health his continued alcohol abuse. History of Present Illness Reason for Consultation: Elevated troponin, syncope Requesting Physician: Hannah Attending Physician: Mark Streeter, History of Present Illness The patient is a 70-year-old woman without a known history of cardiac disease who was brought to the emergency room by a friend after sustaining a fall. The patient has little recollection of the event in question. She does report drinking quite heavily on the day of the event. She states she drinks fairly heavily on most days. She likes to drink vodka. She believes that she fell at some point and struck her head. She did notice yesterday morning that she was bleeding from the back of her head and had a contusion to her left arm. She states that she is currently feeling poorly and is hung over. It seems that on days when she is active she is able to perform routine activity without limitation. She is able to shop for herself. She did not report limitations associated with similar activities. She did not report symptoms of limiting dyspnea or symptoms of chest discomfort. She is not currently having chest discomfort nor does she recall having any of the symptoms yesterday. She did not endorse any symptoms of palpitations or rapid heartbeats. She has had similar episodes previously and these have also been attributed to heavy alcohol use. Allergies Allergy/AdvReac Type Severity Reaction Status Date / Time No Known Allergies Allergy Unverified 01/25/21 20:24 Home Medications Medication Instructions Recorded Confirmed Type alendronate 35 mg PO WK 01/25/21 01/25/21 History cholecalciferol (vitamin D3) 2,000 unit PO DAILY 01/25/21 01/25/21 History [Vitamin D3] docusate sodium 100 mg PO DAILY 01/25/21 01/25/21 History folic acid 400 mcg PO DAILY 01/25/21 01/25/21 History hydrochlorothiazide 25 mg PO QAM 01/25/21 01/25/21 History lamotrigine 200 mg PO BID 01/25/21 01/25/21 History lorazepam 1 mg PO HS PRN 01/25/21 01/25/21 History propranolol 40 mg PO BID 01/25/21 01/25/21 History risperidone [Risperdal] 0.5 mg PO HS 01/25/21 01/25/21 History vortioxetine [Trintellix] 20 mg PO DAILY 01/25/21 01/25/21 History zolpidem [Ambien] 5 mg PO 4XWK PRN 01/25/21 01/25/21 History Patient History Medical History Hypertension Social History Smoking Status: Never smoker Hx Alcohol Use: Yes Alcohol type: hard liquor Hx Substance Use: No Preferred Language: Hungarian Communication Ability: Effective Beam Press Operator Required: No Beliefs That Will Affect Care: None Current Living Situation: Alone Other Information That Helps Us Care for You: No Feels Safe at Home: Yes Safety Concerns: Feels Safe At This Time Assistive Devices: None Review of Systems Review of Systems: All systems reviewed & are unremarkable except as noted in HPI & below Poor appetite this morning Physical Exam Physical Exam: She is alert and oriented x3. Flat affect. She answered all q uestions appropriately. HEENT: Sclerae are anicteric. Pupils are equal and reactive to light and accommodation. Extraocular movements were intact. Neuro: Cranial nerves intact Neck: Examination of the submandibular region did not reveal any significant lymphadenopathy. Carotids are palpable bilaterally and free of bruits on auscultation. There was no evidence of jugular venous distention. The thyroid was not enlarged. Lungs: Lungs are clear to auscultation bilaterally. There are no rales wheezes or rhonchi. She has normal respiratory effort without use of accessory muscles. There is normal pulmonary excursion. Cardiac: The rhythm was regular. S1 and S2 were normal. There are no murmurs on examination. The PMI was not markedly displaced on palpation. Abdomen: The abdomen was soft and nontender. Extremities: Patient has bilateral radial pulses that are equal in intensity. There is no evidence cyanosis or clubbing. There was no evidence of significant peripheral edema bilaterally. Skin: There are no rashes noted on examination today. Ecchymosis noted in the left arm Results & Data ([facility]) Vital Signs (Past 12 Hours) Vital Signs Temp Pulse Pulse Resp BP BP Pulse Ox 01/26/21 07:35 78 01/26/21 07:02 36.7 C 80 19 107/66 95 01/26/21 04:07 37.2 C 18 101/62 94 01/26/21 00:59 36.8 C 128 H 18 163/81 H 94 01/25/21 23:00 120 H 26 H 150/72 H 90 01/25/21 22:45 113 H 21 133/67 94 01/25/21 22:30 117 H 17 142/77 H 92 Laboratory Results Abnormal Lab Results 01/25/21 01/25/21 01/25/21 19:54 19:54 19:54 WBC 3.89 L RBC 3.44 L Hgb 11.7 L Hct 34.2 L MCV 99.4 MCH 34.0 MCHC 34.2 RDW Std Deviation 46.3 RDW Coeff of Rosaura 12.7 Plt Count 147 MPV 9.3 Immature Gran % (Auto) 0.3 Neut % (Auto) 62.1 Lymph % (Auto) 25.7 Sharkey % (Auto) 11.1 Eos % (Auto) 0.3 Baso % (Auto) 0.5 Neut # (Auto) 2.42 Lymph # (Auto) 1.00 L [place]key # (Auto) 0.43 Eos # (Auto) 0.01 Baso # (Auto) 0.02 Immature Gran # (Auto) 0.01 Pappenheimer Bodies Occasional Sodium 132 L Potassium 3.3 L Chloride 92 L Carbon Dioxide 26 Anion Gap 14.0 H BUN 9 Creatinine 0.76 Est Cr Clr Drug Dosing Not Reportable Est GFR ( Amer) 92.8 Est GFR (Non-Af Amer) 80.0 BUN/Creatinine Ratio 11.9 Glucose 83 Calcium 8.8 Magnesium 2.3 Total Bilirubin 1.2 H AST 232 H ALT 113 H Alkaline Phosphatase 93 Troponin I 0.084 H* Total Protein 7.6 Albumin 4.0 Globulin 3.6 Albumin/Globulin Ratio 1.1 Ethyl Alcohol mg/dL 382.3 H COVID-19 Eval Order SARS-CoV-2 (PCR) Influenza Type A (PCR) Influenza Type B (PCR) RSV (RT-PCR) 01/25/21 01/25/21 01/26/21 21:07 21:07 05:40 WBC RBC Hgb Hct MCV MCH MCHC RDW Std Deviation RDW Coeff of Rosaura Plt Count MPV Immature Gran % (Auto) Neut % (Auto) Lymph % (Auto) Sharkey % (Auto) Eos % (Auto) Baso % (Auto) Neut # (Auto) Lymph # (Auto) Sharkey # (Auto) Eos # (Auto) Baso # (Auto) Immature Gran # (Auto) Pappenheimer Bodies Sodium 134 L Potassium 3.5 Chloride 98 Carbon Dioxide 26 Anion Gap 11.0 BUN 9 Creatinine 0.65 Est Cr Clr Drug Dosing 70.6 Est GFR ( Amer) 105.0 Est GFR (Non-Af Amer) 90.6 BUN/Creatinine Ratio 13.1 Glucose 58 L Calcium 8.0 L Magnesium Total Bilirubin 1.0 AST 172 H ALT 86 H Alkaline Phosphatase 66 Troponin I 0.129 H* Total Protein 5.9 L D Albumin 3.1 L Globulin 2.7 Albumin/Globulin Ratio 1.1 Ethyl Alcohol mg/dL COVID-19 Eval Order CovFluRsv at [facility] SARS-CoV-2 (PCR) NEGATIVE Influenza Type A (PCR) Negative Influenza Type B (PCR) Negative RSV (RT-PCR) Negative 01/26/21 05:40 WBC 4.12 L RBC 2.87 L Hgb 9.7 L Hct 28.7 L MCV 100.0 MCH 33.8 MCHC 33.8 RDW Std Deviation 46.7 H RDW Coeff of Rosaura 12.7 Plt Count 126 L MPV 9.5 Immature Gran % (Auto) 0.0 Neut % (Auto) 50.3 Lymph % (Auto) 37.1 Sharkey % (Auto) 11.7 Eos % (Auto) 0.7 Baso % (Auto) 0.2 Neut # (Auto) 2.07 Lymph # (Auto) 1.53 Sharkey # (Auto) 0.48 Eos # (Auto) 0.03 Baso # (Auto) 0.01 Immature Gran # (Auto) 0.00 Pappenheimer Bodies Sodium Potassium Chloride Carbon Dioxide Anion Gap BUN Creatinine Est Cr Clr Drug Dosing Est GFR ( Amer) Est GFR (Non-Af Amer) BUN/Creatinine Ratio Glucose Calcium Magnesium Total Bilirubin AST ALT Alkaline Phosphatase Troponin I Total Protein Albumin Globulin Albumin/Globulin Ratio Ethyl Alcohol mg/dL COVID-19 Eval Order SARS-CoV-2 (PCR) Influenza Type A (PCR) Influenza Type B (PCR) RSV (RT-PCR) Diagnostic Findings Patient underwent imaging of the head neck arm and chest. No evidence of pulmonary embolus. No significant trauma or fractures. No intracranial hemorrhage. Echocardiogram performed today revealed preserved LV systolic function without regional wall motion abnormalities. Only mild mitral regurgitation. Some mild biatrial enlargement. ECG Additional Comments: EKG obtained the time admission revealed sinus tachycardia PG Care Time/CCT Total # of Minutes Spent Total Time Spent with Patient: Total time spent is greater than 50% in coordination of care (as documented) at patient's floor/unit and/or counseling patient: Coding Level of Care Code 00665 Initial Inpt Care Lvl 3 Diagnoses Syncope R55 Syncope type: unspecified Elevated troponin R77.8 (1) Syncope Syncope type: unspecified Qualified Code(s): R55 - Syncope and collapse
--- NOTE | 2021-01-26 10:37 | XCELERA ---
[id number]
--- NOTE | 2021-01-26 13:03 | Electrocardiogram Report ---
Test Reason : Blood Pressure : / mmHG Vent. Rate : 104 BPM Atrial Rate : 104 BPM P-R Int : 150 ms QRS Dur : 082 ms QT Int : 348 ms P-R-T Axes : 049 067 034 degrees QTc Int : 457 ms Sinus tachycardia Otherwise normal ECG No previous ECGs available Confirmed by Deacon Yap ([id number]) on 01/26/2021 1:03:12 PM Referred By: REFERRED SELF Confirmed By:Chip Yap
--- NOTE | 2021-01-26 16:26 | Hospitalist Progress Note ---
Date of Service January 26, 2021 Assessment & Plan (1) Syncope: No changes on EKG No arrhythmias on telemetry Echocardiogram nonrevealing Cardiology consulted and following. Continue monitor telemetry overnight Most likely secondary to alcohol intoxication (2) Elevated troponin: Probably secondary to fall and alcohol intoxication No chest pain or tightness Does not appear to be ACS Echocardiogram with no significant abnormalities May consider outpatient treadmill stress test Otherwise, no further cardiology intervention this admission (3) Alcohol intoxication: APRIL on admission 302.3 Follow electrolytes Follow nutritional assessment Discussed need for alcohol abstinence with patient today. Continue folic acid and thiamine Monitor on telemetry for now (4) Acute hyponatremia: Improved at 134 Follow serial lab (5) Acute hypokalemia: Potassium now 3.5 Follow serial lab (6) Hypertension: Continue hydrochlorothiazide and propanolol Follow vitals per protocol (7) Abnormal liver function tests: May be sequela of alcohol abuse Patient ultrasound 08/19/2020 suggestive of hepatic steatosis and gallbladder polyp No abdominal pain on exam No abdominal pain with deep palpation Follow serial labs Complete abstention from ethanol abuse Outpatient follow-up with GI per PCP (8) Manic depressive disorder: No emotional lability Continue usual home medications Provide supportive care while inpatient (9) DVT prophylaxis: Enoxaparin 40 mg SQ daily Admission and Anticipated Discharge Date Admission Date: January 25, 2021 Subjective Attending: Dr. Streeter 70-year-old female admitted yesterday after syncopal episode while intoxicated. Blood alcohol level on admission was 302.3. At bedside this morning, patient says she still feels somewhat lethargic and "out of it". No chest pain or tightness. No nausea or vomiting. No diarrhea. Patient denies any headache. She just does not feel well. She has no specific acute complaints Review of Systems Review of Systems: All systems reviewed & are unremarkable except as noted in Subjective Physical Exam Physical Exam: GENERAL : No acute distress. Pleasant EYES: No icterus, gaze conjugate. Pupils equal round and reactive to light NOSE: No evidence of epistaxis MOUTH: No lesions or candidiasis NECK: Supple LUNGS: CTA B/L, no wheezes, rales or rhonchi. Good inspiratory effort HEART: Regular, rate controlled ABDOMEN: Soft, NT, ND, BS Present EXTREMITIES: No LE edema, pedal pulses intact NEURO: A&OX3 Results & Data Results & Data ([facility]) Vital Signs (Past 12 Hours) Vital Signs Temp Pulse Pulse Resp BP Pulse Ox 01/26/21 14:57 36.8 C 83 20 117/70 94 01/26/21 11:12 36.9 C 74 19 113/69 95 01/26/21 07:35 78 01/26/21 07:02 36.7 C 80 19 107/66 95 PG Care Time/CCT Total # of Minutes Spent Total Time Spent with Patient: Total time spent is greater than 50% in coordination of care (as documented) at patient's floor/unit and/or counseling patient: Coding Level of Care Code 46648 Subseq Hosp Care Lvl 2 Diagnoses Syncope R55 Syncope type: unspecified Elevated troponin R77.8 Alcohol intoxication F10.929 Complication of substance-induced condition: with unspecified complication Acute hyponatremia E87.1 Acute hypokalemia E87.6 Hypertension I10 Abnormal liver function tests R94.5 Manic depressive disorder F31.9 DVT prophylaxis Z29.9 (1) Syncope Syncope type: unspecified Qualified Code(s): R55 - Syncope and collapse (2) Alcohol intoxication Complication of substance-induced condition: with unspecified complication Qualified Code(s): F10.929 - Alcohol use, unspecified with intoxication, unspecified
[2021-01-26] MEDS: risperiDONE 0.5 MG TABLET PO SCH (21:58)
[2021-01-26] MEDS: LORazepam 1 MG TAB PO PRN (21:58)
[2021-01-27] MEDS: NSS + 20MEQ KCL 20 MEQ/1,000 ML BAG IV SCH ×2 (05:16→15:39)
[2021-01-27 05:47] LABS: Basophils # (auto) 0.01 K/uL (0-0.2); Basophils % (auto) 0.3 %; Eosinophils # (auto) 0.04 K/uL (0-0.5); Eosinophils % (auto) 1.1 %; Hematocrit (blood only) 28.6 % (37-47); Hemoglobin 9.6 g/dL (12.0-16.0); Immature Granulocytes # (auto) 0.01 K/uL (0.00-0.02); Immature Granulocytes % (auto) 0.3 %; Lymphocytes # (auto) 1.62 K/uL (1.2-3.4); Lymphocytes % (auto) 42.6 %; Mean Corpuscular Hemoglobin 34.5 pg (25-34); Mean Corpuscular Hgb Conc 33.6 g/dL (32-36); Mean Corpuscular Volume 102.9 fL (80-100); Mean Platelet Volume 9.8 fL (7.4-10.4); Monocytes # (auto) 0.43 K/uL (0.11-0.59); Monocytes % (auto) 11.3 %; Neutrophils # (auto) 1.69 K/uL (1.4-6.5); Neutrophils % (auto) 44.4 %; Platelet Count 113 K/uL (130-400); RDW Coefficient of Variation 12.8 % (11.5-14.5); RDW Standard Deviation 47.9 fL (36.4-46.3); Red Blood Count 2.78 M/uL (4.2-5.4)
[2021-01-27 06:23] LABS: Albumin Level 2.9 gm/dl (3.4-5.0); BUN Creatinine Ratio 12.4 (10-20); Calcium 7.5 mg/dl (8.5-10.1); Creatinine Clr Calc Pharmacy 70.8 ml/min; Est GFR (African American) 103.9; Est GFR (Non-African American) 89.7; Potassium 3.7 mmol/L (3.5-5.1)
[2021-01-27 06:29] LABS: Bilirubin,Total 2.1 mg/dl (0.2-1); Globulin 2.9 gm/dl (2.5-4.0); Total Protein 5.8 gm/dl (6.4-8.2); Troponin I 0.061 ng/ml (0-0.045)
[2021-01-27] MEDS: CHOLECALCIFEROL 1,000 UNITS 25 MCG TAB PO SCH (07:41)
[2021-01-27] MEDS: DOCUSATE SODIUM 100 MG CAP PO SCH (07:41)
[2021-01-27] MEDS: TRINTELLIX~ORDER AWAITING ACTION SCH (07:42)
[2021-01-27] MEDS: ENOXAPARIN INJ 40 MG/0.4 ML SYR SQ SCH (07:42)
[2021-01-27] MEDS: FOLIC ACID 1 MG TAB PO SCH (07:42)
[2021-01-27] MEDS: PROPRANOLOL HCL 20 MG TAB PO SCH ×2 (07:42→19:44)
[2021-01-27] MEDS: THIAMINE HCL 100 MG TAB PO SCH (07:42)
[2021-01-27] MEDS: lamoTRIgine 100 MG TAB PO SCH ×2 (07:42→19:45)
[2021-01-27] MEDS ORDERED: TRINTELLIX PO SCH (09:00)
--- NOTE | 2021-01-27 09:24 | Hospitalist Progress Note ---
Date of Service January 27, 2021 Assessment & Plan (1) Syncope: Syncope-not felt to be seizure disorder possibly related to alcohol Noted to be 2 days prior to arrival Unknown frequency of falls prior to this Likely secondary to alcohol abuse (2) Alcohol withdrawal: Alcohol withdrawal/alcohol intoxication/alcohol abuse over several years- Alcohol level 302.3 upon admission AWSS protocol with IV Ativan Patient not exhibiting physical signs or symptoms of current withdrawal not tachycardic blood pressure is only slightly elevated (3) Alcohol intoxication: See above (4) Elevated troponin: Troponin 0.084 troponin trended upward to 0.129 but now down to 0.061 Likely type II FL, supply demand mismatch (5) Abnormal liver function tests: Total bilirubin 1.2, AST 232, ALT 113. Alcoholic hepatitis versus alcoholic liver disease versus others. Ultrasound of abdomen on 08/19/2020 suggested hepatic steatosis and a probable gallbladder polyp (6) Hypertension: Hypertension/hyponatremia/hypokalemia- Hold HCTZ, as likely cause. Continue propranolol 40 mg p.o. twice daily NSS + KCl 20 mEq at 100 mils per hour These have corrected we will stop IV fluids patient is eating well (7) Acute hyponatremia: Resolved (8) Acute hypokalemia: Resolved (9) Manic depressive disorder: Continue lamotrigine, Risperdal, Trintellix. Likely self-medicating with alcohol use as well. She reports she has a counselor in the outpatient setting, and does not want to see psychiatry this admission Admission and Anticipated Discharge Date Admission Date: January 25, 2021 Subjective pt is pleasant but weak, has not been walking since she is here, she is less tremulous Review of Systems Review of Systems: Mild distress and fatigue no headache, blurry or double vision no speech or swallowing issues no chest pain, pressure or palpitations no shortness of breath, cough or wheezes no abdominal pain, nausea or vomiting, diarrhea or constipation no dysuria, hematuria or frequency no focal joint pain or swelling no back pain, CVA tenderness or radicular pain no bruising, bleeding or rashes no focal signs of weakness or numbness or altered sensation no complaints of anxiety or depression.. Physical Exam Physical Exam: The patient appeared chronically ill and frail and weak Vital signs as documented. Head exam is normocephalic atraumatic no scleral icterus Neck is without JVD, thyromegaly, or carotid bruits. Lungs are clear to auscultation, no focal loss of breath sounds Cardiac exam, Rhythm is regular.. No murmurs, rubs or gallops. Abdominal exam reveals normal bowel sounds, soft non tender, no masses Extremities are nonedematous and both pedal pulses are present Neurologic exam is alert and oriented, decreased strength of her lower legs without focal deficits Skin is without bruises or rashes Psychologically is without concerns for anxiety or depression Results & Data Results & Data ([facility]) Vital Signs (Past 12 Hours) Vital Signs Temp Pulse Pulse Resp BP Pulse Ox 01/27/21 07:02 98.8 F 84 19 120/71 94 01/27/21 03:00 99.5 F 79 18 118/69 98 01/26/21 23:34 86 01/26/21 22:39 98.2 F 86 20 139/85 94 PG Care Time/CCT Total # of Minutes Spent Total Time Spent with Patient: Total time spent is greater than 50% in coordination of care (as documented) at patient's floor/unit and/or counseling patient: Coding Level of Care Code 65298 Subseq Hosp Care Lvl 2 Diagnoses Syncope R55 Syncope type: unspecified Alcohol withdrawal F10.239 Alcohol intoxication F10.929 Complication of substance-induced condition: with unspecified complication Elevated troponin R77.8 Abnormal liver function tests R94.5 Hypertension I10 Acute hyponatremia E87.1 Acute hypokalemia E87.6 Manic depressive disorder F31.9 (1) Alcohol intoxication Complication of substance-induced condition: with unspecified complication Qualified Code(s): F10.929 - Alcohol use, unspecified with intoxication, unspecified (2) Syncope Syncope type: unspecified Qualified Code(s): R55 - Syncope and collapse
[2021-01-27] MEDS ORDERED: Nursing to Pharmacy Communication SCH (16:00)
--- NOTE | 2021-01-27 16:01 | Cardiology Progress Note ---
Date of Service January 27, 2021 Assessment & Plan (1) Syncope: Related to alcohol intoxication. No arrhythmias noted on her telemetry overnight. I do not believe she requires any additional cardiology evaluation in this regard. (2) Elevated troponin: Very mildly elevated cardiac biomarkers. I do not believe she had an acute coronary syndrome. I do not think we need to pursue any additional evaluation in the absence of more concerning symptoms. If she is ambulatory and has symptoms of chest pain or limiting dyspnea we could consider an evaluation. Otherwise, I will concentrate on standard cardiac risk factor modification according to published guidelines. Admission and Anticipated Discharge Date Admission Date: January 25, 2021 Subjective The patient reports feeling better today. She states she is somewhat jittery, but feeling much better. No significant ambulation yet. Review of Systems Review of Systems: Per HPI Physical Exam Physical Exam: She is alert and oriented x3. Flat affect. She answered all questions appropriately. HEENT: Sclerae are anicteric. Pupils are equal and reactive to light and accommodation. Extraocular movements were intact. Neuro: Cranial nerves intact Lungs: Lungs are clear to auscultation bilaterally. There are no rales wheezes or rhonchi. She has normal respiratory effort without use of accessory muscles. There is normal pulmonary excursion. Cardiac: The rhythm was regular. S1 and S2 were normal. There are no murmurs on examination. The PMI was not markedly displaced on palpation. Extremities: Patient has bilateral radial pulses that are equal in intensity. There is no evidence cyanosis or clubbing. There was no evidence of significant peripheral edema bilaterally. Skin: There are no rashes noted on examination today. Ecchymosis noted in the left arm Results & Data ([facility]) Vital Signs (Past 12 Hours) Vital Signs Temp Pulse Pulse Resp BP Pulse Ox 01/27/21 15:24 36.8 C 84 20 148/83 H 99 01/27/21 11:03 36.8 C 66 20 138/85 98 01/27/21 08:00 76 01/27/21 07:02 37.1 C 84 19 120/71 94 Laboratory Results Abnormal Lab Results 01/26/21 01/27/21 01/27/21 20:38 05:24 05:24 WBC 3.80 L RBC 2.78 L Hgb 9.6 L Hct 28.6 L MCV 102.9 H MCH 34.5 H MCHC 33.6 RDW Std Deviation 47.9 H RDW Coeff of Rosaura 12.8 Plt Count 113 L MPV 9.8 Immature Gran % (Auto) 0.3 Neut % (Auto) 44.4 Lymph % (Auto) 42.6 [place] % (Auto) 11.3 Eos % (Auto) 1.1 Baso % (Auto) 0.3 Neut # (Auto) 1.69 Lymph # (Auto) 1.62 [place] # (Auto) 0.43 Eos # (Auto) 0.04 Baso # (Auto) 0.01 Immature Gran # (Auto) 0.01 Sodium 138 Potassium 3.7 Chloride 105 Carbon Dioxide 26 Anion Gap 7.0 BUN 8 Creatinine 0.67 Est Cr Clr Drug Dosing 70.8 Est GFR ( Amer) 103.9 Est GFR (Non-Af Amer) 89.7 BUN/Creatinine Ratio 12.4 Glucose 81 Calcium 7.5 L Total Bilirubin 2.1 H D AST 168 H ALT 83 H Alkaline Phosphatase 77 Troponin I 0.064 H* 0.061 H* Total Protein 5.8 L Albumin 2.9 L Globulin 2.9 Albumin/Globulin Ratio 1.0 PG Care Time/CCT Total # of Minutes Spent Total Time Spent with Patient: Total time spent is greater than 50% in coordination of care (as documented) at patient's floor/unit and/or counseling patient: Coding Level of Care Code 88504 Subseq Hosp Care Lvl 2 Diagnoses Syncope R55 Syncope type: unspecified Elevated troponin R77.8 (1) Syncope Syncope type: unspecified Qualified Code(s): R55 - Syncope and collapse
[2021-01-27] MEDS: LORazepam 1 MG TAB PO PRN (21:32)
[2021-01-27] MEDS: TRINTELLIX PO SCH (21:32)
[2021-01-27] MEDS: risperiDONE 0.5 MG TABLET PO SCH (21:32)
[2021-01-28 05:55] LABS: Basophils # (auto) 0.01 K/uL (0-0.2); Basophils % (auto) 0.2 %; Eosinophils # (auto) 0.12 K/uL (0-0.5); Eosinophils % (auto) 2.6 %; Hematocrit (blood only) 29.9 % (37-47); Hemoglobin 9.8 g/dL (12.0-16.0); Immature Granulocytes # (auto) 0.01 K/uL (0.00-0.02); Immature Granulocytes % (auto) 0.2 %; Lymphocytes # (auto) 1.88 K/uL (1.2-3.4); Lymphocytes % (auto) 40.9 %; Mean Corpuscular Hemoglobin 33.4 pg (25-34); Mean Corpuscular Hgb Conc 32.8 g/dL (32-36); Mean Platelet Volume 10.2 fL (7.4-10.4); Monocytes % (auto) 8.7 %; Neutrophils # (auto) 2.18 K/uL (1.4-6.5); Neutrophils % (auto) 47.4 %; Platelet Count 117 K/uL (130-400); RDW Coefficient of Variation 12.7 % (11.5-14.5); RDW Standard Deviation 47.5 fL (36.4-46.3); Red Blood Count 2.93 M/uL (4.2-5.4)
[2021-01-28 06:14] LABS: Giant Platelets 1+; Pappenheimer Bodies 1+
[2021-01-28 06:29] LABS: BUN Creatinine Ratio 5.5 (10-20); Calcium 8.3 mg/dl (8.5-10.1); Creatinine Clr Calc Pharmacy 64.2 ml/min; Est GFR (African American) 95.8; Est GFR (Non-African American) 82.7; Potassium 3.3 mmol/L (3.5-5.1)
[2021-01-28 06:32] LABS: Albumin Globulin Ratio 1.1 (0.9-2); Bilirubin,Total 1.7 mg/dl (0.2-1); Globulin 2.7 gm/dl (2.5-4.0); Total Protein 5.7 gm/dl (6.4-8.2)
[2021-01-28] MEDS: CHOLECALCIFEROL 1,000 UNITS 25 MCG TAB PO SCH (08:05)
[2021-01-28] MEDS: PROPRANOLOL HCL 20 MG TAB PO SCH ×2 (08:06→22:00)
[2021-01-28] MEDS: FOLIC ACID 1 MG TAB PO SCH (08:07)
[2021-01-28] MEDS: lamoTRIgine 100 MG TAB PO SCH ×2 (08:07→21:58)
[2021-01-28] MEDS: THIAMINE HCL 100 MG TAB PO SCH (08:08)
[2021-01-28] MEDS: TRINTELLIX PO SCH (08:08)
[2021-01-28] MEDS ORDERED: LORazepam 0.5 MG TAB PO PRN (10:09)
[2021-01-28] MEDS: DOCUSATE SODIUM 100 MG CAP PO SCH (10:11)
[2021-01-28] MEDS: ENOXAPARIN INJ 40 MG/0.4 ML SYR SQ SCH (11:14)
[2021-01-28] MEDS: POTASSIUM CHLORIDE CRTAB 20 MEQ TABCR PO SCH ×2 (11:22→21:58)
--- NOTE | 2021-01-28 18:11 | Hospitalist Progress Note ---
Date of Service January 28, 2021 Assessment & Plan (1) Syncope: Syncope-not felt to be seizure disorder possibly related to alcohol Noted to be 2 days prior to arrival Unknown frequency of falls prior to this pt was intoxicated on arrival (2) Alcohol withdrawal: Alcohol withdrawal/alcohol intoxication/alcohol abuse over several years- Alcohol level 302.3 upon admission AWSS protocol completed Patient not exhibiting physical signs or symptoms of current withdrawal not tachycardic blood pressure is only slightly elevated (3) Alcohol intoxication: See above (4) Elevated troponin: Troponin 0.084 troponin trended upward to 0.129 but now down to 0.061 Likely type II [place], supply demand mismatch (5) Abnormal liver function tests: Total bilirubin AST has come doen Ultrasound of abdomen on 08/19/2020 suggested hepatic steatosis and a probable gallbladder polyp (6) Hypertension: Hypertension/hyponatremia/hypokalemia- Hold HCTZ, as likely cause. Continue propranolol 40 mg p.o. twice daily NSS + KCl 20 mEq at 100 mils per hour These have corrected we will stop IV fluids patient is eating well (7) Acute hyponatremia: Resolved (8) Acute hypokalemia: Resolved (9) Manic depressive disorder: Continue lamotrigine, Risperdal, Trintellix. Likely self-medicating with alcohol use as well. She reports she has a counselor in the outpatient setting, and does not want to see psychiatry this admission Admission and Anticipated Discharge Date Admission Date: January 25, 2021 Subjective pt is pleasant but weak, has not been walking since she is here, she is less tremulous, she remains forgetful, concern for safe disposition as lives alone Review of Systems Review of Systems: Mild distress and fatigue no headache, blurry or double vision no speech or swallowing issues no chest pain, pressure or palpitations no shortness of breath, cough or wheezes no abdominal pain, nausea or vomiting, diarrhea or constipation no dysuria, hematuria or frequency no focal joint pain or swelling no back pain, CVA tenderness or radicular pain no bruising, bleeding or rashes no focal signs of weakness or numbness or altered sensation no complaints of anxiety or depression.. Physical Exam Physical Exam: The patient appeared chronically ill and frail and weak Vital signs as documented. Head exam is normocephalic atraumatic no scleral icterus Neck is without JVD, thyromegaly, or carotid bruits. Lungs are clear to auscultation, no focal loss of breath sounds Cardiac exam, Rhythm is regular.. No murmurs, rubs or gallops. Abdominal exam reveals normal bowel sounds, soft non tender, no masses Extremities are nonedematous and both pedal pulses are present Neurologic exam is alert and oriented, decreased strength of her lower legs without focal deficits Skin is without bruises or rashes Psychologically is without concerns for anxiety or depression Results & Data Results & Data ([facility]) Vital Signs (Past 12 Hours) Vital Signs Temp Pulse Pulse Resp BP BP Pulse Ox 01/28/21 15:11 97.9 F 78 18 128/79 98 01/28/21 11:09 98.2 F 74 19 143/86 H 96 01/28/21 09:56 98.1 F 78 17 143/81 H 97 01/28/21 08:54 84 01/28/21 07:58 99.0 F 81 18 153/84 H 95 PG Care Time/CCT Total # of Minutes Spent Total Time Spent with Patient: Total time spent is greater than 50% in coordination of care (as documented) at patient's floor/unit and/or counseling patient: Coding Level of Care Code 26192 Subseq Hosp Care Lvl 2 Diagnoses Syncope R55 Syncope type: unspecified Alcohol withdrawal F10.239 Alcohol intoxication F10.929 Complication of substance-induced condition: with unspecified complication Elevated troponin R77.8 Abnormal liver function tests R94.5 Hypertension I10 Acute hyponatremia E87.1 Acute hypokalemia E87.6 Manic depressive disorder F31.9 (1) Syncope Syncope type: unspecified Qualified Code(s): R55 - Syncope and collapse (2) Alcohol intoxication Complication of substance-induced condition: with unspecified complication Qualified Code(s): F10.929 - Alcohol use, unspecified with intoxication, unspecified
[2021-01-28] MEDS: LORazepam 1 MG TAB PO PRN (21:55)
[2021-01-28] MEDS: risperiDONE 0.5 MG TABLET PO SCH (21:57)
[2021-01-29] MEDS: PROPRANOLOL HCL 20 MG TAB PO SCH ×2 (09:13→21:20)
[2021-01-29] MEDS: FOLIC ACID 1 MG TAB PO SCH (09:13)
[2021-01-29] MEDS: THIAMINE HCL 100 MG TAB PO SCH (09:13)
[2021-01-29] MEDS: DOCUSATE SODIUM 100 MG CAP PO SCH (09:13)
[2021-01-29] MEDS: ENOXAPARIN INJ 40 MG/0.4 ML SYR SQ SCH (09:14)
[2021-01-29] MEDS: lamoTRIgine 100 MG TAB PO SCH ×2 (09:14→21:19)
[2021-01-29] MEDS: CHOLECALCIFEROL 1,000 UNITS 25 MCG TAB PO SCH (09:14)
[2021-01-29] MEDS: POTASSIUM CHLORIDE CRTAB 20 MEQ TABCR PO SCH (09:14)
[2021-01-29 10:20] LABS: BUN Creatinine Ratio 9.6 (10-20); Calcium 8.7 mg/dl (8.5-10.1); Est GFR (African American) 97.4; Magnesium 1.9 mg/dl (1.8-2.4); Potassium 3.8 mmol/L (3.5-5.1)
[2021-01-29] MEDS ORDERED: NALTREXONE HCL 50 MG TAB PO SCH (13:00)
--- NOTE | 2021-01-29 17:01 | Hospitalist Progress Note ---
Date of Service January 29, 2021 Assessment & Plan (1) Syncope: Syncope-not felt to be seizure disorder probably related to alcohol Noted to be 2 days prior to arrival Unknown frequency of falls prior to this pt was intoxicated on arrival (2) Alcohol withdrawal: Alcohol withdrawal/alcohol intoxication/alcohol abuse over several years- Alcohol level 302.3 upon admission AWSS protocol completed Patient not exhibiting physical signs or symptoms of current withdrawal not tachycardic blood pressure is only slightly elevated the pt is adamant that she will not seek outside help for her alcohol addiction and has seen the light and will stop, I encouraged her to seek outside support and remove all alcohol from her home, she did agree to start naltrexone (3) Alcohol intoxication: See above (4) Elevated troponin: Troponin 0.084 troponin trended upward to 0.129 but now down to 0.061 Likely type II [place], supply demand mismatch (5) Abnormal liver function tests: Total bilirubin AST has come doen Ultrasound of abdomen on 08/19/2020 suggested hepatic steatosis and a probable gallbladder polyp (6) Hypertension: Hypertension/hyponatremia/hypokalemia- Hold HCTZ, as likely cause. Continue propranolol 40 mg p.o. twice daily NSS + KCl 20 mEq at 100 mils per hour These have corrected we will stop IV fluids patient is eating well (7) Acute hyponatremia: Resolved (8) Acute hypokalemia: Resolved (9) Manic depressive disorder: Continue lamotrigine, Risperdal, Trintellix. Likely self-medicating with alcohol use as well. She reports she has a counselor in the outpatient setting, and does not want to see psychiatry this admission Admission and Anticipated Discharge Date Admission Date: January 25, 2021 Subjective pt remains pleasant but weak, has not been walking since she is here, she is less tremulous, she remains forgetful, concern for safe disposition as lives alone Review of Systems Review of Systems: Mild distress and fatigue no headache, blurry or double vision no speech or swallowing issues no chest pain, pressure or palpitations no shortness of breath, cough or wheezes no abdominal pain, nausea or vomiting, diarrhea or constipation no dysuria, hematuria or frequency no focal joint pain or swelling no back pain, CVA tenderness or radicular pain no bruising, bleeding or rashes no focal signs of weakness or numbness or altered sensation no complaints of anxiety or depression.. Physical Exam Physical Exam: The patient appeared chronically ill and frail and weak Vital signs as documented. Head exam is normocephalic atraumatic no scleral icterus Neck is without JVD, thyromegaly, or carotid bruits. Lungs are clear to auscultation, no focal loss of breath sounds Cardiac exam, Rhythm is regular.. No murmurs, rubs or gallops. Abdominal exam reveals normal bowel sounds, soft non tender, no masses Extremities are nonedematous and both pedal pulses are present Neurologic exam is alert and oriented, decreased strength of her lower legs without focal deficits Skin is without bruises or rashes Psychologically is without concerns for anxiety or depression Results & Data Results & Data ([facility]) Vital Signs (Past 12 Hours) Vital Signs Temp Pulse Resp BP Pulse Ox 01/29/21 15:11 98 01/29/21 14:44 98.2 F 81 17 138/83 96 01/29/21 07:15 98.4 F 84 17 155/84 H 98 PG Care Time/CCT Total # of Minutes Spent Total Time Spent with Patient: Total time spent is greater than 50% in coor dination of care (as documented) at patient's floor/unit and/or counseling patient: Coding Level of Care Code 25117 Subseq Hosp Care Lvl 2 Diagnoses Syncope R55 Syncope type: unspecified Alcohol withdrawal F10.239 Alcohol intoxication F10.929 Complication of substance-induced condition: with unspecified complication Elevated troponin R77.8 Abnormal liver function tests R94.5 Hypertension I10 Acute hyponatremia E87.1 Acute hypokalemia E87.6 Manic depressive disorder F31.9 (1) Syncope Syncope type: unspecified Qualified Code(s): R55 - Syncope and collapse (2) Alcohol intoxication Complication of substance-induced condition: with unspecified complication Qualified Code(s): F10.929 - Alcohol use, unspecified with intoxication, unspecified
[2021-01-29] MEDS: risperiDONE 0.5 MG TABLET PO SCH (21:19)
[2021-01-29] MEDS: LORazepam 1 MG TAB PO PRN (21:22)
[2021-01-29] MEDS: TRINTELLIX PO SCH (23:06)
[2021-01-30] MEDS ORDERED: Nursing to Pharmacy Communication SCH (05:15)
[2021-01-30 06:28] LABS: BUN Creatinine Ratio 9.6 (10-20); Calcium 8.6 mg/dl (8.5-10.1); Creatinine Clr Calc Pharmacy 57.2 ml/min; Est GFR (African American) 83.4; Est GFR (Non-African American) 71.9; Magnesium 2.1 mg/dl (1.8-2.4); Potassium 3.8 mmol/L (3.5-5.1)
[2021-01-30] MEDS: ENOXAPARIN INJ 40 MG/0.4 ML SYR SQ SCH (09:34)
[2021-01-30] MEDS: FOLIC ACID 1 MG TAB PO SCH (09:34)
[2021-01-30] MEDS: PROPRANOLOL HCL 20 MG TAB PO SCH ×2 (09:34→20:21)
[2021-01-30] MEDS: CHOLECALCIFEROL 1,000 UNITS 25 MCG TAB PO SCH (09:34)
[2021-01-30] MEDS: lamoTRIgine 100 MG TAB PO SCH ×2 (09:34→20:23)
[2021-01-30] MEDS: THIAMINE HCL 100 MG TAB PO SCH (09:34)
[2021-01-30] MEDS: DOCUSATE SODIUM 100 MG CAP PO SCH (09:35)
--- NOTE | 2021-01-30 15:32 | Hospitalist Progress Note ---
Date of Service January 30, 2021 Assessment & Plan (1) Syncope: Syncope-not felt to be seizure disorder probably related to alcohol Noted to be days prior to arrival Unknown frequency of falls prior to this pt was intoxicated on arrival (2) Alcohol withdrawal: Alcohol withdrawal/alcohol intoxication/alcohol abuse over several years- Alcohol level 302.3 upon admission AWSS protocol completed Patient not exhibiting physical signs or symptoms of current withdrawal not tachycardic blood pressure is only slightly elevated the pt is adamant that she will not seek outside help for her alcohol addiction and has seen the light and will stop, I encouraged her to seek outside support and remove all alcohol from her home, she did agree to start naltrexone initial dosing of called some lethargy will continue to try dosing she is in agreement (3) Alcohol intoxication: See above patient is outside of time spent for alcohol withdrawal at this time (4) Elevated troponin: Troponin 0.084 troponin trended upward to 0.129 but now down to 0.061 Likely type II [place], supply demand mismatch (5) Abnormal liver function tests: Total bilirubin AST has come down Ultrasound of abdomen on 08/19/2020 suggested hepatic steatosis and a probable gallbladder polyp (6) Hypertension: Hypertension/hyponatremia/hypokalemia- Hold HCTZ, as likely cause. Continue propranolol 40 mg p.o. twice daily NSS + KCl 20 mEq at 100 mils per hour These have corrected we will stop IV fluids patient is eating well (7) Acute hyponatremia: Resolved (8) Acute hypokalemia: Resolved (9) Manic depressive disorder: Continue lamotrigine, Risperdal, Trintellix. Likely self-medicating with alcohol use as well. She reports she has a counselor in the outpatient setting, and does not want to see psychiatry this admission Admission and Anticipated Discharge Date Admission Date: January 25, 2021 Subjective Patient feels better today she felt somewhat fatigued after taking naltrexone on 01/30/2020. She otherwise did do well with physical therapy but needs an assistive walking device. Initially she was resistant to a cane but she wishes to have the PT people reevaluate her for use of a cane at home. She feels her home set up is too narrow for the use of a support of walker Review of Systems Review of Systems: Mild distress and fatigue no headache, blurry or double vision no speech or swallowing issues no chest pain, pressure or palpitations no shortness of breath, cough or wheezes no abdominal pain, nausea or vomiting, diarrhea or constipation no dysuria, hematuria or frequency no focal joint pain or swelling no back pain, CVA tenderness or radicular pain Some bruising of her skin from frequent falling at home no focal signs of weakness or numbness or altered sensation , does have some weakness of her lower legs no complaints of anxiety or depression.. Physical Exam Physical Exam: The patient appeared well nourished and normally developed. Vital signs as documented. Head exam is normocephalic atraumatic no scleral icterus Neck is without JVD, thyromegaly, or carotid bruits. Lungs are clear to auscultation, no focal loss of breath sounds Cardiac exam, Rhythm is regular.. No murmurs, rubs or gallops. Abdominal exam reveals normal bowel sounds, soft non tender, no masses Extremities are nonedematous and both pedal pulses are present Neurologic exam is alert and oriented, no focal loss of strength or sensation Skin is with very stage bruises mostly looks to be traumatic from falling Psychologically is without concerns for anxiety or depression Results & Data Results & Data ([facility] [place]) Vital Signs (Past 12 Hours) Vital Signs Temp Pulse Resp BP Pulse Ox 01/30/21 07:53 98.2 F 80 16 126/72 97 PG Care Time/CCT Total # of Minutes Spent Total Time Spent with Patient: Total time spent is greater than 50% in coordination of care (as documented) at patient's floor/unit and/or counseling patient: Coding Level of Care Code 66653 Subseq Hosp Care Lvl 2 Diagnoses Syncope R55 Syncope type: unspecified Alcohol withdrawal F10.239 Alcohol intoxication F10.929 Complication of substance-induced condition: with unspecified complication Elevated troponin R77.8 Abnormal liver function tests R94.5 Hypertension I10 Acute hyponatremia E87.1 Acute hypokalemia E87.6 Manic depressive disorder F31.9 (1) Syncope Syncope type: unspecified Qualified Code(s): R55 - Syncope and collapse (2) Alcohol intoxication Complication of substance-induced condition: with unspecified complication Qualified Code(s): F10.929 - Alcohol use, unspecified with intoxication, unspecified
[2021-01-30] MEDS: TRINTELLIX PO SCH (20:23)
[2021-01-30] MEDS ORDERED: NALTREXONE HCL 50 MG TAB PO SCH (21:00)
[2021-01-30] MEDS: LORazepam 1 MG TAB PO PRN (22:06)
[2021-01-30] MEDS: risperiDONE 0.5 MG TABLET PO SCH (22:06)
[2021-01-31 07:28] LABS: BUN Creatinine Ratio 8.7 (10-20); Calcium 8.8 mg/dl (8.5-10.1); Creatinine Clr Calc Pharmacy 54.6 ml/min; Est GFR (African American) 78.8; Potassium 3.6 mmol/L (3.5-5.1)
[2021-01-31] MEDS: PROPRANOLOL HCL 20 MG TAB PO SCH (08:55)
[2021-01-31] MEDS: FOLIC ACID 1 MG TAB PO SCH (08:55)
[2021-01-31] MEDS: CHOLECALCIFEROL 1,000 UNITS 25 MCG TAB PO SCH (08:56)
[2021-01-31] MEDS: lamoTRIgine 100 MG TAB PO SCH (08:56)
[2021-01-31] MEDS: THIAMINE HCL 100 MG TAB PO SCH (08:56)
[2021-01-31] MEDS: DOCUSATE SODIUM 100 MG CAP PO SCH (09:03)
[2021-01-31] MEDS: ENOXAPARIN INJ 40 MG/0.4 ML SYR SQ SCH (09:28)
--- NOTE | 2021-01-31 19:39 | Discharge Summary ---
Date of Service January 31, 2021 Principal Diagnosis alcohol intoxication alcohol withdrawal steatohepatitis troponin elevation not acute coronary syndrome Discharge Exam The patient appeared well Vital signs as documented. Lungs are clear to auscultation and appear unlabored Cardiac exam, Rhythm is regular.. No murmurs, rubs or gallops. Abdominal exam reveals normal bowel sounds, soft non tender, no masses Extremities are nonedematous and both pedal pulses are normal. Neurologic exam is alert and oriented, no focal loss of strength or sensation Skin is with bruises in various stages of healing Psychologically is without concerns for anxiety or depression. Discharge Data Allergies Allergy/AdvReac Type Severity Reaction Status Date / Time No Known Allergies Allergy Unverified 01/25/21 20:24 Consultations 01/25/21 21:17 ED Decision to Admit Stat 01/26/21 00:58 Consult Cardiology Routine Ordered Studies 01/25/21 19:35 CT cervical spine wo con Stat CT head/brain wo con Stat 01/25/21 20:39 CT angio chest PE protocol Stat Hospital Course (1) Syncope: Syncope-not felt to be seizure disorder probably related to alcohol Noted to be days prior to arrival Unknown frequency of falls prior to this pt was intoxicated on arrival (2) Alcohol withdrawal: Alcohol withdrawal/alcohol intoxication/alcohol abuse over several years- Alcohol level 302.3 upon admission AWSS protocol completed Patient not exhibiting physical signs or symptoms of current withdrawal not tachycardic blood pressure is only slightly elevated the pt is adamant that she will not seek outside help for her alcohol addiction and has seen the light and will stop, I encouraged her to seek outside support and remove all alcohol from her home, she did agree to start naltrexone initial dosing of called some lethargy will continue to try dosing she is in agreement (3) Alcohol intoxication: See above patient is outside of time spent for alcohol withdrawal at this time (4) Elevated troponin: Troponin 0.084 troponin trended upward to 0.129 but now down to 0.061 Likely type II [place], supply demand mismatch acute coronary syndrome (5) Abnormal liver function tests: Total bilirubin AST has come down Ultrasound of abdomen on 08/19/2020 suggested hepatic steatosis and a probable gallbladder polyp (6) Hypertension: Hypertension/hyponatremia/hypokalemia- Hold HCTZ, as likely cause. Continue propranolol 40 mg p.o. twice daily (7) Acute hyponatremia: Resolved (8) Acute hypokalemia: Resolved (9) Manic depressive disorder: Continue lamotrigine, Risperdal, Trintellix. Likely self-medicating with alcohol use as well. She reports she has a counselor in the outpatient setting, and does not want to see psychiatry this admission Home Health Attestation I certify that this patient is under my care and that I, or a physicians bilingual administrative assistant working with me, had a face to-face encounter that meets the home health [id number] encounter requirements with this patient. The encounter with the patient was in whole, or in part, for the following medical condition, which is the primary reason for home health care (list medical condition): I certify that, based on my findings, the following services are medically necessary home health services: My clinical findings support the need for the above services because: Medication Compliance and Monitoring Effective of New Medications OT Assess ADL Status and Restore Function w ADLs PT Assessment for Endurance / Balance / Strength PT Eval for Safety and Mobility PT Eval for Safety, Gait Training, Assistive Devices PT Gait and Balance Training, Strengthening and Safety Safety Skilled Nsg Assessment Vital Signs Further, I certify that my clinical findings support that this patient is homebound (i.e. absences from home require considerable and taxing effort and are for medical reasons or anabaptism services or infrequently or of short duration when for other reasons) because: Assistance of 1 Person for Ambulation/Activities Supportive Aid - Walker Certification for Home Health Services: Based on the above findings, I certify that this patient is confined to the home and needs intermittent detention care, physical therapy and/or speech therapy or continues to need occupational therapy. The patient is under my care, and I have initiated the establishment of the plan of care. This patient will be followed by a physician who will periodically review the plan of care. Total Time Total Time Spent Total Time Spent (In Minutes): It required greater than 30 minutes to prepare this patient for discharge Discharge Plan Discharge Items Patient Disposition: Home - Home Health Services Reason For Visit: ELEVATED TROPONIN, ALCOHOL WITHDRAWAL Discharge Diagnosis: weakness alcoholic liver irritation Activity: Per Instructions section Activity Comment: use walker and follow PT Non-emergency contact: Primary Care Provider Call non-emergency contact if: you have any medication questions Follow-up/Referrals: Annmarie Greene DO [Primary Care Provider] - Diet: Regular Addtl Attending Provider Instructions: please do not drink alcohol of any kind Pending Studies at Discharge: No Stand-Alone Forms: My [facility] [employer], Smoking Cessation Medications and DC Order Prescriptions: New naltrexone 50 mg Tablet 50 mg PO HS Qty: 14 RF: 0 (DME) benjei Misc See Rx Instructions .ROUTE .MEDSUPPLY Qty: 1 RF: 0 Continued lamotrigine 200 mg tablet 200 mg PO BID RF: 0 folic acid 400 mcg Tablet 400 mcg PO DAILY RF: 0 alendronate 35 mg tablet 35 mg PO WK RF: 0 propranolol 40 mg tablet 40 mg PO BID RF: 0 docusate sodium 100 mg Capsule 100 mg PO DAILY RF: 0 zolpidem [Ambien] 5 mg Tablet 5 mg PO [id number] PRN (Reason: Sleep) RF: 0 lorazepam 1 mg tablet 1 mg PO HS PRN (Reason: Sleep) RF: 0 risperidone [Risperdal] 0.5 mg Tablet 0.5 mg PO HS RF: 0 cholecalciferol (vitamin D3) [Vitamin D3] 50 mcg (2,000 unit) Tablet 2,000 unit PO DAILY RF: 0 Trintellix 20 mg tablet 20 mg PO DAILY RF: 0 Discontinued hydrochlorothiazide 25 mg tablet 25 mg PO QAM RF: 0 Discharge Orders: Discharge Order (Routine); Ordered 01/31/21 Ordered By: Ferdinand Cevallos/Other Patient Handouts: Preventing Falls Making Changes ..., Preventing Falls Moving Safely ..., Preventing Falls Moving Safely Outside, Exercises to Prevent Falls, Preventing Falls: Staying Active, Preventing Falls How to Prepare ..., Preventing Falls Make Your Health ... Admission Data Admit Date/Time: 01/25/21 23:21 Attending Provider: Ferdinand Rosales Admit Provider: Chirag Young Primary Care Provider: Annmarie Greene Other Providers: Chirag Young ; Tesfaye Hobbs ; [facility] Other Interventions: Discharge Summary Assessment (RN) Last Done: 01/31/21 12:38 Coding Level of Care Code D/C Day Management >30 mins Diagnoses Syncope R55 Syncope type: unspecified Alcohol withdrawal F10.239 Alcohol intoxication F10.929 Complication of substance-induced condition: with unspecified complication Elevated troponin R77.8 Abnormal liver function tests R94.5 Hypertension I10 Acute hyponatremia E87.1 Acute hypokalemia E87.6 Manic depressive disorder F31.9
== END 2021-01-31 16:09 | disposition home health service (06) | DRG 896 ==
LOC: ED 19:22 → 2S 23:21 → SUATTDRO 23:21 → 2S 01-26 01:57 → 3W 01-28 09:52